=== PATIENT | female | born 1970 | race Caucasian/White ===

== ENCOUNTER 2019-09-05 11:20 | Inpatient (IN) | payer BC, SELFPAY ==
[2019-09-05] VITALS (14 sets, daily range): BP systolic 134–178; BP diastolic 68–97; PULSE 68–112; RESP 16–34; TEMP 36.8; O2SAT 96–98; BMI 22.0
--- NOTE | 2019-09-05 12:26 | CT_ITS ---
WS: [id number] CT abdomen wo/w con [id number] REASON FOR EXAM: hx pancreatitis IV CONTRAST ADMINISTERED: Omnipaque 300, 95 mL. TOTAL EXAM DLP: 775.[address] scans at [facility] use at least one of these dose optimization techniques: automat ed exposure control; mA and/or kV adjustment per patient size (includes targeted exams where dose is matched to clinical dication); or iterative reconstruction. The head of the pancreas shows low-grade hypointense signal. Consistent with low-grade pancreatitis. The pancreatic duct is mildly dilated. The body and tail are normal. There is no fluid seen surrounding Gerota's fascia. There is status post cholecystectomy. The liver was normal with no infiltrating changes. The spleen, stomach, are normal. The common bile duct slightly prominent measures 7.97 cm. Both kidneys are normal no masses no hydronephrosis no stones. The right colon was normal. Index shows no inflammatory changes. The uterus is normal the left ovary shows a cyst measures 2.77 cm. The left ovary measured 3.93 cm. T he right ovary shows a cyst measures 2.05 cm. Line the uterus is normal. The bladder was normal. There is no free fluid in the pelvis seen. The sigmoid colon and descending colon show no abnormalities. CT/CT abdomen wo/w con [id number] IMPRESSION: Early pancreatitis involving the head of the pancreas There is bilateral ovarian cysts largest on the left.
--- NOTE | 2019-09-05 12:37 | ED_ITS ---
HPI - Abdominal Pain General: Chief Complaint: Abdominal Pain Stated Complaint: ABD PAIN Time Seen by Provider: 09/05/19 12:20 Source: patient Mode of arrival: ambulatory History of Present Illness: HPI narrative: pain in upper abdomen radiating through to both sides MD elicited complaint: abdominal pain Pertinent past history: other (pancreatitis ) Onset (ago): hour(s) (3 hours) Pain scale (0-10): 5 Associated Symptoms: Reports nausea; Denies chills and fever(s) Related Data: Date of Last Menstrual Period: 08/13/19 Review of Systems General: Reports: 10 or more systems reviewed and unremarkable except in HPI and below Const: Reports: body aches; Denies: fever(s) or chills GI: Reports: abdominal pain and nausea PFSH ED PFSH: Social History Smoking and tobacco status: current every day smoker Female Reproductive History: Date of last menstrual period: 08/13/19 Physical Exam Const: COMMON NORMALS: no acute distress, patient oriented x3, no limitations and alert GENERAL APPEARANCE: cooperative and comfortable ORIENTATION/CONSCIOUSNESS: Yes awake, Yes oriented to person, Yes oriented to place and Yes oriented to time HENMT: COMMON NORMALS: normocephalic, atraumatic, external ears normal, EAC's normal, TM's normal bilaterally and Normal external nose present HEAD & SCALP: normal to inspection, normocephalic and atraumatic FACE & SINUS: normal facial exam, sinuses nontender and face symmetric NOSE: Normal external nose present, Normal nares present and No nasal discharge present EXTERNAL EAR: Yes external ears normal EXTERNAL AUDITORY CANAL: EAC's normal TYMPANIC MEMBRANE: TM's normal bilaterally MOUTH: Normal oral and palatal mucosa present, lip normal and tongue normal THROAT: posterior oropharynx normal, tonsils normal and uvula midline Eye: COMMON NORMALS: Equal, round and reactive pupils present, EOMs intact bilaterally and conjunctivae normal GENERAL EYE: appearance normal, both eyes and all related structures and normal light reflex EYELID: eyelids normal CONJUNCTIVA: Yes conjunctivae normal PUPIL: Yes Equal, round and reactive pupils present EOM: Yes EOM abnormal DIRECT OPHTHALMOSCOPY: Yes normal light reflex Neck/C-Spine: COMMON NORMALS: full ROM, no lymphadenopathy, supple, no meningeal signs, no JVD and Thyroid normal GENERAL: Yes normal visual inspection THYROID: Thyroid normal CERVICAL SPINE: Yes cervical ROM normal and Yes normal cervical lordosis Lymph: LYMPHATIC: no lymphadenopathy noted Chest: COMMONS NORMALS: normal inspection of the chest and normal palpation of entire chest wall Resp: COMMON NORMALS: normal respiratory effort, No retractions and clear to auscultation bilaterally AUSCULTATION: clear to auscultation bilaterally Cardio: COMMON NORMALS: no JVD, regular rate, regular rhythm, S1 normal heart sound present, S2 normal heart sound present, No gallops present (Cardio), No clicks present (Cardio), No murmurs present (Cardio), No rub (Cardio) and Peripheral pulses 2+ throughout RATE: regular rate RHYTHM: regular rhythm HEART SOUNDS: S1 normal heart sound present and S2 normal heart sound present PERIPHERAL PULSES: Peripheral pulses 2+ throughout GI: COMMON NORMALS: Normal to inspection, nondistended, normoactive bowel sounds present, Soft to palpation, No hepatosplenomegaly present and no masses AUSCULTATION: Yes normoactive bowel sounds PALPATION: Yes Soft to palpation, Yes Tenderness to palpation present (GI) (epigastric and radiating RUQ AND LUQ) Details: other and Yes No hepatosplenomegaly present : COMMON NORMALS: Yes no CVA tenderness and Yes normal external appearance BLADDER/KIDNEY EXAM: Yes no CVA tenderness Back/Pelvis: COMMON NORMALS: no CVA tenderness, thoracic and lumbar spine normal to inspection, no thoracic nor lumbar tenderness and thoraco-lumbar ROM normal Extremity: COMMON NORMALS: normal to inspection, full ROM, capillary refill normal, no joint enlargement, no clubbing, cyanosis or edema, no calf tenderness and no pedal edema GENERAL: Yes normal exam except as noted Neuro: COMMON NORMALS: patient oriented x3, moves all extremities, no focal motor deficits, no sensory deficits noted and gait normal SENSORIUM/ORIENTATION: Yes alert, Yes oriented to person, Yes oriented to place and Yes oriented to time MENINGEAL SIGNS: Yes no meningeal signs Psych: COMMON NORMALS: mental status grossly normal, Normal thought process present, cooperative, normal affect, speech normal and activity/motor behavior normal SPEECH: Yes normal speech THOUGHT PROCESS: Normal thought process present Skin: COMMON NORMALS: no rashes or lesions noted, no wounds and turgor normal GENERAL SKIN EXAM: no rashes or lesions noted and turgor normal Course ED course: Pt presents with NV and upper abdominal pain since this morning. States hx of pancreatitis. Toradol IM given at PCP prior to arrival. Labs and ct ordered. Reevaluation(s): Reevaluation #1: WBC elevated greater than 17. Pain increased but able to tolerated fluids. Will discuss with attending. Pt pain is tolerable with medications. CT indicates early pancreatitis and subsequent Bilateral ovarian cysts with no free fluid in pelvis. Time: 14:19 Reevaluation #2: Discussed pt case with Dr. Prado. Awaiting CMP. Rocephin 1gm for uti. Pt pain is well managed if is she not moving. Will be NPO. Awaiting lipase as well. Transferring care to Dr. Prado at this time. Time: 14:39 Vital Signs: Vital signs: Vital Signs Temperature 98.2 F 09/05/19 11:34 Pulse Rate 77 09/05/19 11:34 Respiratory Rate 16 09/05/19 13:18 Blood Pressure 165/71 09/05/19 11:34 Pulse Oximetry 98 09/05/19 13:18 MDM - Abdominal Pain Lab Data: Labs: Lab Results 09/05/19 09/05/19 Range/Units 12:50 13:24 WBC 17.4 H (4.0-10.0) 10^3/ uL RBC 4.49 (4.1-5.3) 10^6/u L Hgb 13.8 (11.5-15.3) g/dL Hct 38.9 (37.0-47.0) % MCV 86.6 (81-99) fL MCH 30.7 (28.0-34.0) pg MCHC 35.5 (30.0-36.0) g/dL RDW 13.1 (12.1-15.1) % Plt Count 271 (130-400) 10^3/c mm MPV 11.2 H (7.4-10.4) fL Neut % (Auto) 81.9 % Lymph % (Auto) 13.6 % [place] % (Auto) 3.0 % Eos % (Auto) 0.5 % Baso % (Auto) 0.3 % Neut # (Auto) 14.2 H (1.8-7.7) 10^3/u L Lymph # (Auto) 2.4 (0.8-4.8) 10^3/u L [place] # (Auto) 0.5 (0.2-0.9) 10^3/u L Eos # (Auto) 0.1 (0.0-0.8) 10^3/u L Baso # (Auto) 0.1 (0.0-0.1) 10^3/u L Nucleated RBC % (a uto) 0 % Nucleated RBCs # 0.0 /100WBC Urine Color Yellow (Yellow) Urine Appearance Sl cloudy A (CLEAR) Urine pH 5 (5-7) Ur Specific Gravit y 1.030 (1.005-1.030) Urine Protein 1+ H (Negative) Urine Glucose (UA) Norm (Normal) Urine Ketones 2+ H (Negative) Urine Blood 2+ H (Negative) Urine Nitrate Positive H (Negative) Urine Bilirubin Neg (NEGATIVE) Urine Urobilinogen Neg (Negative) mg/dL Ur Leukocyte [place] ase Negative (Negative) Urine RBC 0-4 H (0-2) /hpf Urine WBC 0-4 H (0-5) /hpf Ur Squamous Epith Cells 5-10 H (0-5) Amorphous Sediment 2+ Urine Bacteria 2+ H (NONE) Urine Mucus 1+ Imaging Data ^: Other CT: Radiologist's impression: [address] [place] [address] CT Scan Report Signed Patient: Melony Hermosillo Unit #: [id number] : 1970 Age/Sex: 49 / F ADM Date: 09/05/19 Loc: ER Room/Bed: Attending Dr: Ordering Provider/Ordering MD: Gely Velasquez NP Date of Service: 09/05/19 Procedure(s): CT abdomen wo/w con [id number] Accession Number(s): [id number] Report Number: [id number] WS: [id number] CT abdomen wo/w con [id number] REASON FOR EXAM: hx pancreatitis IV CONTRAST ADMINISTERED: Omnipaque 300, 95 mL. TOTAL EXAM DLP: 775.[address] scans at [facility] use at least one of these dose optimization techniques: automated exposure control; mA and/or kV adjustment per patient size (includes targeted exams where dose is matched to clinical dication); or iterative reconstruction. The head of the pancreas shows low-grade hypointense signal. Consistent with low-grade pancreatitis. The pancreatic duct is mildly dilated. The body and tail are normal. There is no fluid seen surrounding Gerota's fascia. There is status post cholecystectomy. The liver was normal with no infiltrating changes. The spleen, stomach, are normal. The common bile duct slightly prominent measures 7.97 cm. Both kidneys are normal no masses no hydronephrosis no stones. The right colon was normal. Index shows no inflammatory changes. The uterus is normal the left ovary shows a cyst measures 2.77 cm. The left ovary measured 3.93 cm. The right ovary shows a cyst measures 2.05 cm. Line the uterus is normal. The bladder was normal. There is no free fluid in the pelvis seen. The sigmoid colon and descending colon show no abnormalities. CT/CT abdomen wo/w con [id number] IMPRESSION: Early pancreatitis involving the head of the pancreas There is bilateral ovarian cysts largest on the left. Dictated By: Isacc Patel DO Signed By: Isacc Patel DO Signed Date/Time: 09/05/19 1407 DD/ 1400 Discharge Plan Discharge Prescriptions: No Action metformin 1,000 mg tablet 1,000 mg PO BID RF: 0 Coding Level of Care Code ED Photographic Engineer for Chg Fwd Exam Comprehensive
[2019-09-05] MEDS: ondansetron 2 mg/ML SDV 2 mL 4 MG IVP (13:03)
[2019-09-05] MEDS: sodium chloride 0.9% 500 ML IV (13:05)
[2019-09-05 13:16] LABS: Basophils # 0.1 10^3/uL (0.0-0.1); Basophils % 0.3 %; Eosinophils # 0.1 10^3/uL (0.0-0.8); Eosinophils % 0.5 %; Hematocrit 38.9 % (37.0-47.0); Hemoglobin 13.8 g/dL (11.5-15.3); Lymphocytes # 2.4 10^3/uL (0.8-4.8); Lymphocytes % 13.6 %; Mean Corpuscular HGB Conc 35.5 g/dL (30.0-36.0); Mean Corpuscular Hemoglobin 30.7 pg (28.0-34.0); Mean Corpuscular Volume 86.6 fL (81-99); Mean Platelet Volume 11.2 fL (7.4-10.4); Monocytes # 0.5 10^3/uL (0.2-0.9); Neutrophils # 14.2 10^3/uL (1.8-7.7); Neutrophils % 81.9 %; Nucleated Red Blood Cells % 0 %; Platelet Count 271 10^3/cmm (130-400); Red Blood Count 4.49 10^6/uL (4.1-5.3); Red Cell Distribution Width 13.1 % (12.1-15.1); White Blood Count 17.4 10^3/uL (4.0-10.0)
[2019-09-05] MEDS: morphine 4 mg/mL SDV 1 mL IVP ×3 (13:18→19:13)
[2019-09-05 13:39] LABS: Glucose Urine UA Norm (Normal); Ketones Urine 2+ (Negative); Protein Urine 1+ (Negative); Urine Color Yellow (Yellow); pH Urine 5 (5-7)
[2019-09-05 13:40] LABS: Add Urine Microscopic? YES; Bilirubin Urine Neg (NEGATIVE); Blood Urine 2+ (Negative); Leukocyte Esterase Urine Negative (Negative); Nitrate Urine Positive (Negative); Urobilinogen Urine Neg (Negative)
[2019-09-05 13:53] LABS: Add Urine Culture? Yes; Amorphous Sediment Urine 2+; Bacteria Urine 2+; Mucus Urine 1+; RBC Urine 0-4 /hpf (0-2); WBC Urine 0-4 /hpf (0-5)
[2019-09-05] MEDS: iohexol 300 mg/mL 100 mL Btl IV (13:57)
[2019-09-05] MEDS: cefTRIAXone 1,000 MG in sodium chloride 0.9% (plus) 50 ML 100 MG IV (15:10)
[2019-09-05 16:13] LABS: Alanine Aminotransferase < 5 U/L (0-33); Albumin Level 4.3 g/dL (3.5-5.2); Alkaline Phosphatase 89 IU/L (35-105); Anion Gap 22.5 (5-19); Aspartate Amino Transferase 58 U/L (0-32); Blood Urea Nitrogen 9 mg/dL (6-20); Calcium 9.7 mg/dL (8.5-10.5); Carbon Dioxide 19 mmol/L (22-29); Chloride 92 mmol/L (98-107); Globulin 3.2 g/dL (1.3-4.6); Glomerular Filtration Rate 132.2 mL/min (90-130); Glucose 196 mg/dL (65-115); Osmolality Calculated 269 mOsm/kg (285-295); Sodium 129 mmol/L (136-145); Total Bilirubin 0.2 mg/dL (0.15-1.2); Total Protein 7.5 g/dL (6.6-8.7)
[2019-09-05 16:14] LABS: Potassium 4.5 mmol/L (3.5-5.1)
[2019-09-05 16:15] LABS: Lipase 674 U/L (13-60)
[2019-09-05] MEDS: metoclopramide 5 mg/mL SDV 2 mL 10 MG IVP (17:34)
--- NOTE | 2019-09-05 17:57 | P.HP_ITS ---
Providers/Chief Complaint Chief Complaint: ABD PAIN History of Present Illness Melony Hermosillo is a 49 year old female Review of Systems Const: Denies: fever(s), chills, body aches, change in appetite, malaise, night sweats, diaphoresis, change in sleep pattern, daytime sleepiness or s noring Eyes: Denies: change in vision, blurry vision, photophobia, eye discomfort or eye discharge ENMT: Denies: throat pain, enlarged tonsils, hoarseness, mouth pain, oral sores, dry mouth, tinnitus, nasal congestion or post nasal drip Card: Denies: chest pain, palpitations, irregular heart rhythm, edema, swelling of feet/ankles, lightheadedness, syncope, pre-syncope, dyspnea on exertion, orthopnea, leg pain with exertion or acrocyanosis Resp: Denies: dyspnea, productive cough, non-productive cough, wheezing, stridor, pain on inspiration, change in phlegm color, hemoptysis or chest congestion GI: Denies: abdominal pain, nausea, vomiting, hematemesis, coffee ground emesis, dysphagia, heartburn, diarrhea, constipation, bloating, GI cramping, change in bowel habits, pain on defecation, hematochezia or melena : Denies: flank pain, dysuria, urinary frequency, urinary urgency, urinary hesitancy, nocturia or hematuria Musc: Denies: neck pain, back pain, extremity pain, joint pain, joint swelling, joint redness, joint stiffness or limited range of motion Neuro: Denies: headache(s), numbness in extremities, weakness in extremities, sensory changes, lack of coordination, difficulty walking, frequent falls, dizziness, vertigo, confusion, Slurred speech present, difficulty communicating thoughts or seizure-like activity Psych: Denies: anxiety, depression, mood swings, panic attacks, hopelessness or irritability Endo: Denies: polyuria, polydipsia, tired all the time, cold intolerance, excessive sweating, flushing or heat intolerance Jeramy/Lymph: Denies: easy bruising or easy bleeding All/Imm: Denies: tongue swelling, facial swelling or acute wheezing Medications/Allergies Home Medications Medication Instructions Recorded Confirmed Last Taken Type metformin 1,000 mg PO BID 09/05/19 09/05/19 09/04/19 History Allergies Allergy/AdvReac Type Severity Reaction Status Date / Time No Known Allergies Allergy Verified 09/05/19 11:38 PFSH Acute PFSH: Medical History (Updated 09/05/19 @ 18:03 by Tuan Chinchilla MD) History of diabetes mellitus, type II Pancreatitis Surgical History (Updated 09/05/19 @ 17:59 by Tuan Chinchilla MD) History of History of cholecystectomy History of rhinoplasty Social History Smoking and tobacco status: current every day smoker Female Reproductive History: Date of last menstrual period: 08/13/19 Vitals/I&O/Wt Last Vital Signs Temp 98.2 F 09/05/19 11:34 Pulse 77 09/05/19 11:34 Resp 18 09/05/19 15:15 BP 165/71 09/05/19 11:34 Pulse Ox 98 09/05/19 15:15 Weight last 48 hrs Weight 51.256 kg Physical Exam Narrative: EXAM NARRATIVE: General: No acute distress, AO x3 HEENT: PERRLA, pupils bilaterally equal and reactive Chest: Normal vesicular breath sounds, no added sounds, equal good air entry bilaterally CVS: S1-S2 regular, no murmurs, no tachycardia, no gallops, no rubs Abdomen: Soft, nontender, no organomegaly, bowel sounds present Neuro: No focal deficits, no facial deformity, AO x3, power 5/5 in all limbs Data : 09/05/19 12:50 09/05/19 12:50 A&P Assessment and plan (1) Pancreatitis: Status: Acute (2) Hyponatremia: Status: Acute (3) High anion gap metabolic acidosis: Status: Acute Coding Level of Care Code Acute Seo Manager for [facility] Fwd Diagnoses Pancreatitis K85.90 Hyponatremia E87.1 High anion gap metabolic acidosis E87.2
[2019-09-05 18:14] LABS: Amphetamines Screen Urine Negative (Negative); Barbiturates Screen Urine Negative (Negative); Benzodiazepines Screen Urine Negative (Negative); Cocaine Screen Urine Negative (Negative); Opiate Screen Urine Negative (Negative); PCP Screen Urine Negative (Negative); THC Screen Urine Negative (Negative)
[2019-09-05 18:28] LABS: Triglycerides 4283 mg/dL (0-150)
[2019-09-05 18:31] LABS: Alcohol Level < 10 mg/dL (0-10)
[2019-09-05 18:38] LABS: Lactic Sepsis W/Reflex 1.9 mmol/L (0.5-2.2)
[2019-09-05 18:50] LABS: Procalcitonin 0.06 ng/mL (0-0.5)
[2019-09-05 19:03] LABS: Urine Random Chloride 191 mmol/L; Urine Random Sodium 104 mmol/L
[2019-09-05 19:05] LABS: Iron 27 ug/dL (37-145); Percent Saturation 7.9 % (20-50); Total Iron Binding Capacity 341 mcg/dl; Unsaturated Iron Binding 314 ug/dL (112-347)
--- NOTE | 2019-09-05 19:15 | P.HP_ITS ---
Providers/Chief Complaint Chief Complaint: ABD PAIN History of Present Illness Melony Hermosillo is a 49 year old female who carries diagnosis of type 2 diabetes being treated with metformin only, has had 3 episodes of pancreatitis in the past due to hypertriglyceridemia came in with chief complaint of recurrent nausea and vomiting. Patient is stating that this morning she started feeling n auseous when she woke up, she started experiencing epigastric pain 8/10, it was radiating towards her back, she has had more than 10 episodes of emesis and dry heaves. She is denying any fever, hematemesis, dysuria, chest pain or shortness of breath. She had similar episode in 2016 that is how she could catch her symptoms early on. Diagnostics in the ER revealed leukocytosis, normal hemodynamics, hypertension, CT abdomen revealed pancreatitis, triglyceride levels around 5000, drug screen negative, beta-hCG unremarkable, high anion gap metabolic acidosis due to dehydration, urinary ketones positive At the time of my interview her abdominal pain was 5/10 Review of Systems Const: Reports: body aches and fatigue; Denies: fever(s), chills or change in appetite Eyes: Denies: change in vision ENMT: Denies: throat pain Card: Denies: chest pain or palpitations Resp: Denies: dyspnea GI: Reports: abdominal pain, nausea and vomiting; Denies: diarrhea or constipation : Denies: flank pain or urinary frequency Musc: Reports: back pain Skin/Breast: Denies: rash or pruritus Neuro: Denies: headache(s) Psych: Denies: anxiety Endo: Denies: polyuria Jeramy/Lymph: Denies: easy bruising All/Imm: Denies: urticaria Medications/Allergies Home Medications Medication Instructions Recorded Confirmed Last Taken Type metformin 1,000 mg PO BID 09/05/19 09/05/19 09/04/19 History Allergies Allergy/AdvReac Type Severity Reaction Status Date / Time No Known Allergies Allergy Verified 09/05/19 11:38 PFSH Acute PFSH: Medical History (Updated 09/05/19 @ 19:50 by Navid Valladares MD) History of diabetes mellitus, type II Pancreatitis Surgical History (Updated 09/05/19 @ 17:59 by Tuan Chinchilla MD) History of History of cholecystectomy History of rhinoplasty Family History (Updated 09/05/19 @ 19:45 by Navid Valladares MD) Denies family history of Hyperlipidemia Lung disease Hypertension Social History (Updated 09/05/19 @ 19:45 by Navid Valladares MD) Smoking and tobacco status: heavy tobacco smoker cigarettes [ Other cigarette details: 1 pack/day for last 30 years ] Alcohol intake: never Substance/Drug Use: never Household members: spouse Housing: House Marital status: Female Reproductive History: Date of last menstrual period: 08/13/19 Vitals/I&O/Wt Last Vital Signs Temp 98.2 F 09/05/19 11:34 Pulse 77 09/05/19 11:34 Resp 18 09/05/19 15:15 BP 165/71 09/05/19 11:34 Pulse Ox 98 09/05/19 15:15 Weight last 48 hrs Weight 51.256 kg Physical Exam Narrative: EXAM NARRATIVE: Head to toe examination Patient sitting in her bed feeling nauseous EOMI, PERRLA Clinically looks dehydrated S1, S2 no signs of heart failure tachycardia Epigastric tenderness on mild palpation, bowel sound present, no retroperitoneal hemorrhage signs Lungs are clear to auscultation without adventitious sounds Appropriate mood and affect Skin does not show any sign of ischemia gangrene or ulcer Neurologically nonfocal exam GCS 15 awake alert oriented x3 Data : 09/05/19 12:50 09/05/19 12:50 Micro: Microbiology 09/05/19 18:11 Blood Culture - Preliminary Blood SPECIMEN COLLECTED 09/05/19 18:12 Blood Culture - Preliminary Blood SPECIMEN COLLECTED A&P Assessment and plan (1) Dehydration: Status: Acute (2) Hypertriglyceridemia: Status: Acute (3) High anion gap metabolic acidosis: Status: Acute (4) Hyponatremia: Status: Acute (5) Pancreatitis: Status: Acute (6) History of diabetes mellitus, type II: Status: Acute (7) Smoker: Status: Acute Additional A&P Information Hypertriglyceridemia induced pancreatitis Insulin drip, D5 half-normal 20 KCl will be running along insulin Blood sugar check every hour target 150 to 200 mg/dL Triglyceride level check every 12 hours Probably triglyceride level less than 500 Check A1c level Patient was counseled on smoking cessation, complications such as recurrent pancreatitis or pancreatic cancer explained to the patient, she is willing to quit smoking and is thinking of detoxifying High anion gap metabolic acidosis due to dehydration No active respiratory distress clinically, no need of blood gas at this point Urinary ketones positive Lactic acid normal Alcohol level undetectable Anticipating provement with fluid resuscitation Hyponatremia due to dehydration Currently requiring D5 half-normal saline with potassium supplementation No neurological signs No previous sodium level to compare Type 2 diabetes SHe only takes metformin, We will follow-up with lipid profile and A1c level Bilateral ovarian cyst Beta-hCG unremarkable Denying weight loss, night sweats or vaginal bleeding Full code N.p.o. DVT prophylaxis Attestations Medical Necessity Statement*: Anticipating stay in the hospital cross more than 2 midnights currently need ICU for management of hypertriglyceridemia induced pancreatitis Time Spent in Patient Care: 50 Coding Level of Care Code Acute Senior Contract Specialist for Chg Fwd Diagnoses Dehydration E86.0 Hypertriglyceridemia E78.1 High anion gap metabolic acidosis E87.2 Hyponatremia E87.1 Pancreatitis K85.90 History of diabetes mellitus, type II Z86.39 Smoker F17.200
[2019-09-05] MEDS: insulin regular-human 250 UNIT in sodium chloride 0.9% 250 ML IV (19:27)
[2019-09-05 20:22] LABS: Estmated Average Glucose 212
[2019-09-05] MEDS: D5-NS 0.45% + KCL 20 mEq 20 MEQ/1,000 ML BAG 30 MEQ IV (20:46)
[2019-09-05] MEDS: enoxaparin 40 mg/0.4 mL Syringe SUBCUT (20:47)
[2019-09-05 21:03] LABS: Lactate Dehydrogenase 249 U/L (135-214)
[2019-09-05 21:29] LABS: Glucose Point of Care 149 mg/dL (70-110)
[2019-09-05 21:45] LABS: Potassium, Radom Urine 167 mmol/L
[2019-09-05 22:16] LABS: Glucose Point of Care 163 mg/dL (70-110)
[2019-09-05 23:34] LABS: Glucose Point of Care 181 mg/dL (70-110)
[2019-09-06] VITALS (26 sets, daily range): BP systolic 108–160; BP diastolic 56–86; PULSE 110–140; RESP 16–35; TEMP 36.9–37.9; O2SAT 92–97
[2019-09-06 01:18] LABS: Glucose Point of Care 164 mg/dL (70-110)
[2019-09-06 03:24] LABS: Glucose Point of Care 164 mg/dL (70-110)
[2019-09-06 05:04] LABS: Glucose Point of Care 166 mg/dL (70-110)
[2019-09-06 05:31] LABS: Basophils % 0.2 %; Eosinophils % 0.1 %; Hematocrit 40.9 % (37.0-47.0); Hemoglobin 13.9 g/dL (11.5-15.3); Lymphocytes % 9.1 %; Mean Corpuscular Volume 85.2 fL (81-99); Mean Platelet Volume 10.9 fL (7.4-10.4); Monocytes # 0.9 10^3/uL (0.2-0.9); Monocytes % 4.2 %; Neutrophils # 18.7 10^3/uL (1.8-7.7); Neutrophils % 85.8 %; Nucleated Red Blood Cells % 0 %; Platelet Count 300 10^3/cmm (130-400); Red Cell Distribution Width 13.3 % (12.1-15.1); White Blood Count 21.8 10^3/uL (4.0-10.0)
[2019-09-06 05:49] LABS: Chol HDL Ratio 15.29 mg/dL (0.0-4.40); Cholesterol 367 mg/dL (0-200); HDL Cholesterol 24 mg/dL (60-100)
[2019-09-06 05:57] LABS: Albumin Level 3.9 g/dL (3.5-5.2); Alkaline Phosphatase 74 IU/L (35-105); Anion Gap 20.7 (5-19); Blood Urea Nitrogen 8 mg/dL (6-20); Calcium 8.7 mg/dL (8.5-10.5); Carbon Dioxide 20 mmol/L (22-29); Chloride 97 mmol/L (98-107); Globulin 3.1 g/dL (1.3-4.6); Glomerular Filtration Rate 238.5 mL/min (90-130); Glucose 157 mg/dL (65-115); Osmolality Calculated 277 mOsm/kg (285-295); Potassium 3.7 mmol/L (3.5-5.1); Sodium 134 mmol/L (136-145); Total Bilirubin 0.3 mg/dL (0.15-1.2)
[2019-09-06 06:09] LABS: Glucose Point of Care 152 mg/dL (70-110)
[2019-09-06 06:10] LABS: Alanine Aminotransferase < 5 U/L (0-33); Aspartate Amino Transferase 5 U/L (0-32)
[2019-09-06 06:12] LABS: Triglycerides 1720 mg/dL (0-150); VLDL Cholestrol Calculation 344 mg/dL (0-30)
[2019-09-06 06:24] LABS: Estmated Average Glucose 209; Hemoglobin A1C 8.9 % (4.0-6.0)
[2019-09-06 06:31] LABS: LDL Cholesterol Direct 60 mg/dL (0-100)
--- NOTE | 2019-09-06 07:01 | PM.PN ---
Subjective Subjective: Interval history: Admitted overnight. H&P and labs noted. T-max last 24 hours afebrile. On examination patient lying comfortably in bed. Stating she is feeling a lot better than before. Still has had 2 episodes of vomiting since last night. No hematemesis or melena. Patient is able to walk around the room on her own. Denies of having any headache, dizziness, difficulty breathing. Vitals/I&O/Wt Last Vital Signs Temp 98.4 F 09/06/19 06:00 Pulse 118 H 09/06/19 06:00 Resp 29 H 09/06/19 06:00 BP 148/80 09/06/19 06:00 Pulse Ox 96 09/06/19 06:00 09/05/19 09/06/19 09/06/19 22:59 06:59 14:59 Intake Total 10.45 / 10.45 26.65 / 37.10 Output Total 100 / 100 Balance 10.45 / 10.45 -73.35 / -62.90 Weight last 48 hrs Weight 51.256 kg Physical Exam Narrative: EXAM NARRATIVE: General: No acute distress, AO x3, thin appearing HEENT: PERRLA, pupils bilaterally equal and reactive Chest: Normal vesicular breath sounds, no added sounds, equal good air entry bilaterally CVS: S1-S2 regular, no murmurs, no tachycardia, no gallops, no rubs Abdomen: Soft, tenderness in epigastric area, no rebound no guarding, no organomegaly, bowel sounds present but sluggish Neuro: No focal deficits, no facial deformity, AO x3, power 5/5 in all limbs Data : 09/06/19 05:00 09/06/19 05:00 Micro: Microbiology 09/05/19 18:11 Blood Culture - Preliminary Blood SPECIMEN COLLECTED 09/05/19 18:12 Blood Culture - Preliminary Blood SPECIMEN COLLECTED A&P Assessment and plan (1) Hypertriglyceridemia: Status: Acute (2) Pancreatitis: Status: Acute (3) Dehydration: Status: Acute (4) High anion gap metabolic acidosis: Status: Acute (5) Hyponatremia: Status: Acute (6) History of diabetes mellitus, type II: Status: Acute (7) Smoker: Status: Acute (8) UTI (urinary tract infection): Status: Acute Additional A&P Information Hypertriglyceridemia induced pancreatitis: Patient's white count is elevated, has remained afebrile, no lactic acidosis, normal BUN, normal calcium levels. Alcohol levels undetectable, urine drug screen normal, CT abdomen negative for any gallbladder pathology. Continue insulin drip. Patient would need 0.1 to 0.3 units/kg body weight per hour. Start patient on D5 normal saline at 100 cc/h. Check blood sugar hourly. Check triglyceride at 6 PM. Target triglyceride level less than 500. Keep n.p.o. As patient's white count is trending up along with persistent tachycardia I am highly concerned about source response given severe inflammation from pancreatitis. Along with the fact that patient has dysuria and urine mildly concerning for UTI so we will start her on Zosyn renally dosed which will cover both for possible UTI and intra-abdominal pathology. Start patient on statins. High anion gap metabolic acidosis due to dehydration: Continue with IV fluids. We will continue to monitor BMP daily. Patient does not have any respiratory distress at present. Hyponatremia due to dehydration: Resolved Type 2 diabetes: Takes metformin at home. HbA1c 9. Check blood sugar hourly for now. N.p.o. for now. Patient would most likely need more aggressive treatment as an outpatient along with statins. Bilateral ovarian cyst Beta-hCG unremarkable Denying weight loss, night sweats or vaginal bleeding Full code N.p.o. Lovenox for DVT prophylaxis. Protonix for PUD prophylaxis Zofran as needed Attestations Medical Necessity Statement*: Hypertriglyceridemia induced pancreatitis Critical Care Time: Insulin drip for triglyceride management by managing blood sugars Critical Care Time (min): 80 Coding Level of Care Code Acute Venture Capital Analyst for [facility] Fwd Diagnoses Hypertriglyceridemia E78.1 Pancreatitis K85.90 Dehydration E86.0 High anion gap metabolic acidosis E87.2 Hyponatremia E87.1 History of diabetes mellitus, type II Z86.39 Smoker F17.200 UTI (urinary tract infection) N39.0
[2019-09-06 07:30] LABS: Free T4 Free Thyroxine 1.08 ng/dL (0.82-1.77); T3 Free 3.2 PG/ML (2.0-4.4)
[2019-09-06] MEDS: piperacillin-tazobactam 3.375 GM in sodium chloride 0.9% (plus) 50 ML IV ×2 (09:41→16:50)
[2019-09-06 10:36] LABS: Glucose Point of Care 174 mg/dL (70-110)
[2019-09-06 10:36] LABS: Glucose Point of Care 108 mg/dL (70-110)
[2019-09-06 10:36] LABS: Glucose Point of Care 168 mg/dL (70-110)
[2019-09-06 10:36] LABS: Glucose Point of Care 153 mg/dL (70-110)
[2019-09-06 10:36] LABS: Glucose Point of Care 156 mg/dL (70-110)
[2019-09-06] MEDS: dextrose 5%-sod chloride 0.9% 1,000 ML 50 ML IV ×2 (10:58→20:23)
[2019-09-06 13:05] LABS: Glucose Point of Care 140 mg/dL (70-110)
[2019-09-06 13:05] LABS: Glucose Point of Care 148 mg/dL (70-110)
[2019-09-06] MEDS: morphine 4 mg/mL SDV 1 mL IVP (13:33)
--- NOTE | 2019-09-06 13:40 | PC.NURSE ---
C/O ABD. PAIN. HEART RATE UP TODAY TEMP UP.
[2019-09-06] MEDS: pantoprazole 40 mg SDV IVP (14:47)
[2019-09-06 14:51] LABS: Glucose Point of Care 136 mg/dL (70-110)
[2019-09-06 19:10] LABS: Glucose Point of Care 127 mg/dL (70-110)
[2019-09-06 19:13] LABS: Triglycerides 761 mg/dL (0-150)
[2019-09-06 19:27] LABS: LDL Cholesterol Direct 60 mg/dL (0-100)
[2019-09-06] MEDS: atorvastatin 40 mg Tablet PO (20:23)
[2019-09-06] MEDS: enoxaparin 40 mg/0.4 mL Syringe SUBCUT (20:23)
[2019-09-06 20:28] LABS: Glucose Point of Care 123 mg/dL (70-110)
[2019-09-06 23:12] LABS: Anion Gap 18.3 (5-19); Blood Urea Nitrogen 8 mg/dL (6-20); Calcium 8.2 mg/dL (8.5-10.5); Carbon Dioxide 23 mmol/L (22-29); Chloride 99 mmol/L (98-107); Glomerular Filtration Rate 76.9 mL/min (90-130); Glucose 73 mg/dL (65-115); Osmolality Calculated 278 mOsm/kg (285-295); Potassium 3.3 mmol/L (3.5-5.1); Sodium 137 mmol/L (136-145)
[2019-09-06 23:12] LABS: Glucose Point of Care 192 mg/dL (70-110)
[2019-09-07] VITALS (24 sets, daily range): BP systolic 112–155; BP diastolic 62–75; PULSE 109–145; RESP 16–44; TEMP 37.9–38.3; O2SAT 90–98
[2019-09-07 01:26] LABS: Glucose Point of Care 178 mg/dL (70-110)
[2019-09-07] MEDS: piperacillin-tazobactam 3.375 GM in sodium chloride 0.9% (plus) 50 ML IV ×3 (01:48→18:33)
[2019-09-07 05:09] LABS: Basophils # 0.1 10^3/uL (0.0-0.1); Basophils % 0.4 %; Eosinophils # 0.1 10^3/uL (0.0-0.8); Eosinophils % 0.6 %; Hematocrit 34.2 % (37.0-47.0); Hemoglobin 11.2 g/dL (11.5-15.3); Lymphocytes # 1.7 10^3/uL (0.8-4.8); Lymphocytes % 9.6 %; Mean Corpuscular HGB Conc 32.7 g/dL (30.0-36.0); Mean Corpuscular Hemoglobin 28.9 pg (28.0-34.0); Mean Corpuscular Volume 88.4 fL (81-99); Mean Platelet Volume 10.8 fL (7.4-10.4); Monocytes # 0.8 10^3/uL (0.2-0.9); Monocytes % 4.8 %; Neutrophils # 14.7 10^3/uL (1.8-7.7); Neutrophils % 83.1 %; Nucleated Red Blood Cells % 0 %; Platelet Count 223 10^3/cmm (130-400); Red Blood Count 3.87 10^6/uL (4.1-5.3); Red Cell Distribution Width 13.9 % (12.1-15.1); White Blood Count 17.7 10^3/uL (4.0-10.0)
[2019-09-07 05:36] LABS: Triglycerides 622 mg/dL (0-150)
[2019-09-07 05:38] LABS: Alanine Aminotransferase 12 U/L (0-33); Albumin Level 3.1 g/dL (3.5-5.2); Alkaline Phosphatase 66 IU/L (35-105); Anion Gap 14.9 (5-19); Aspartate Amino Transferase 16 U/L (0-32); Blood Urea Nitrogen 5 mg/dL (6-20); Carbon Dioxide 22 mmol/L (22-29); Chloride 102 mmol/L (98-107); Globulin 3.1 g/dL (1.3-4.6); Glomerular Filtration Rate 76.9 mL/min (90-130); Glucose 173 mg/dL (65-115); Osmolality Calculated 282 mOsm/kg (285-295); Sodium 136 mmol/L (136-145); Total Bilirubin 0.5 mg/dL (0.15-1.2); Total Protein 6.2 g/dL (6.6-8.7)
[2019-09-07 05:42] LABS: Potassium 2.9 mmol/L (3.5-5.1)
[2019-09-07 05:43] LABS: Glucose Point of Care 199 mg/dL (70-110)
[2019-09-07 05:58] LABS: LDL Cholesterol Direct 69 mg/dL (0-100)
--- NOTE | 2019-09-07 07:23 | CT_ITS ---
WS: [id number] CT abdomen pelvis w con* [id number] REASON FOR EXAM: r/o necrotizing pancreatitis IV CONTRAST ADMINISTERED: Omnipaque 300, 95 mL . TOTAL EXAM DLP: 402.[address] scans at [facility] use at least one of these dose optimization techniques: automat ed exposure control; mA and/or kV adjustment per patient size (includes targeted exams where dose is matched to clinical indication); or iterative reconstruction. FINDINGS: The left breast shows a mass measures 4.3 x 2.6 cm. The right lower lung shows a low-grade infiltrate. Normal appearance the liver with no masses or filling defects. Stable postcholecystectomy. The spleen was normal. The head and body of the pancreas shows marked edema this changes and there is a questionable pseudoc yst in the head of the pancreas. There is considerable edema surrounding the pancreas Considerable fluid is seen surrounding Gerota's fascia. The kidneys himself are normal in appearance. The large bowel was normal there is scattered fluid throughout the abdomen seen. There is small bowel distention consistent with a ileus. There is no thickening of the wall of the sm all bowel. The descending colon shows diverticulosis. The bladder was normal. There is some fluid seen in the pelvis. The rectum was normal.. CT/CT abdomen pelvis w con* [id number] IMPRESSION: Acute necrotizing pancreatitis A small pseudocyst in the head of the pancreas Fluid surrounding the kidneys and scattered throughout the abdomen Ileus changes of the small bowel.
[2019-09-07] MEDS: potassium chloride premix 40 MEQ/100 ML PREMIX 25 MEQ IV ×2 (07:26→12:03)
[2019-09-07] MEDS: iohexol 300 mg/mL 100 mL Btl IV (08:38)
[2019-09-07 09:15] LABS: Glucose Point of Care 131 mg/dL (70-110)
[2019-09-07] MEDS: pantoprazole 40 mg SDV IVP (09:53)
[2019-09-07] MEDS: morphine 4 mg/mL SDV 1 mL 2 MG IVP ×3 (10:08→22:12)
[2019-09-07] MEDS: ondansetron 2 mg/ML SDV 2 mL 4 MG IVP (10:08)
[2019-09-07] MEDS: dextrose 5%-sod chloride 0.9% 1,000 ML 50 ML IV ×2 (12:03→19:28)
[2019-09-07 13:20] LABS: Glucose Point of Care 133 mg/dL (70-110)
[2019-09-07 14:32] LABS: Triglycerides 552 mg/dL (0-150)
[2019-09-07 15:30] LABS: LDL Cholesterol Direct 64 mg/dL (0-100)
--- NOTE | 2019-09-07 15:52 | PM.PN ---
Subjective Subjective: Interval history: No acute events overnight. Patient states her abdominal pain is a lot better. Denies of having any vomiting but continues to be really nauseous. Wondering if she can eat. T-max in last 24-hour 100.3 last night. Patient continues to remain persistently tachycardic. Denies of having any shortness of breath, dizziness, palpitations. Vitals/I&O/Wt Last Vital Signs Temp 100.9 F H 09/07/19 15:00 Pulse 138 H 09/07/19 15:00 Resp 26 H 09/07/19 15:27 BP 143/66 09/07/19 15:00 Pulse Ox 95 09/07/19 15:27 09/07/19 09/07/19 09/07/19 06:59 14:59 22:59 Intake Total 50 / 744.916 883.333 / 883.333 Output Total 1000 / 1201 Balance -950 / -456.084 883.333 / 883.333 Physical Exam Narrative: EXAM NARRATIVE: General: No acute distress, AO x3, thin appearing HEENT: PERRLA, pupils bilaterally equal and reactive Chest: Normal vesicular breath sounds, no added sounds, equal good air entry bilaterally CVS: S1-S2 regular, no murmurs, no tachycardia, no gallops, no rubs Abdomen: Soft, tenderness in epigastric area, no rebound no guarding, no organomegaly, bowel sounds present but sluggish Neuro: No focal deficits, no facial deformity, AO x3, power 5/5 in all limbs Data : 09/07/19 04:40 09/07/19 04:40 Micro: Microbiology 09/05/19 13:24 Urine Culture - Final Urine,Clean Catch Escherichia coli 09/05/19 18:11 Blood Culture - Preliminary Blood NEGATIVE TO DATE 09/05/19 18:12 Blood Culture - Preliminary Blood NEGATIVE TO DATE A&P Assessment and plan (1) Hypertriglyceridemia: Status: Acute (2) Dehydration: Status: Acute (3) High anion gap metabolic acidosis: Status: Acute (4) Hyponatremia: Status: Acute (5) History of diabetes mellitus, type II: Status: Acute (6) Smoker: Status: Acute (7) UTI (urinary tract infection): Status: Acute (8) Acute necrotizing pancreatitis: Status: Acute Additional A&P Information Hypertriglyceridemia induced pancreatitis: Patient's white count is elevated, has remained afebrile, no lactic acidosis, normal BUN, normal calcium levels. Alcohol levels undetectable, urine drug screen normal, CT abdomen negative for any gallbladder pathology. Because of persistent fever, tachycardia will get CT abdomen pelvis with contrast to rule out necrotizing pancreatitis. Triglyceride levels coming down. 622 today morning. Continue insulin drip at a steady rate. Patient usually requires 0.1 to 0.3 units/kg body weight per hour. For now patient is on 3 units/h because of hypoglycemia on the higher rates. Continue with D5 NS at 150 cc/h. Check blood sugar hourly. Check triglyceride at 6 PM. Target triglyceride level less than 500. Keep n.p.o. In view of necrotizing pancreatitis Zosyn was started yesterday. Because patient continues to have fever check MRSA swab. Start patient on vancomycin at renal dose. Start patient on statins. High anion gap metabolic acidosis due to dehydration: Continue with IV fluids. We will continue to monitor BMP daily. Patient does not have any respiratory distress at present. Hyponatremia due to dehydration: Resolved Type 2 diabetes: Takes metformin at home. HbA1c 9. Check blood sugar hourly for now. N.p.o. for now. Patient would most likely need more aggressive treatment as an outpatient along with statins. Bilateral ovarian cyst Beta-hCG unremarkable Denying weight loss, night sweats or vaginal bleeding Full code N.p.o. Lovenox for DVT prophylaxis. Protonix for PUD prophylaxis Zofran as needed Attestations Medical Necessity Statement*: Hypertriglycerides induced pancreatitis Time Spent in Patient Care: Greater than 35 minutes (>than 50% of time spent in counselling and/or direct pt care on unit). Critical Care Time: Insulin drip Critical Care Time (min): 70 Coding Level of Care Code Acute Ambulance Dispatcher for g Fwd Diagnoses Hypertriglyceridemia E78.1 Dehydration E86.0 High anion gap metabolic acidosis E87.2 Hyponatremia E87.1 History of diabetes mellitus, type II Z86.39 Smoker F17.200 UTI (urinary tract infection) N39.0 Acute necrotizing pancreatitis K85.91
--- NOTE | 2019-09-07 16:19 | P.TS_ITS ---
Transfer Summary Providers Date of Admission: 09/05/19 18:46 Date of Discharge: 09/07/19 Attending Provider at Admission: Christen Serrano MD Attending Provider at Transfer: Tuan Chinchilla MD Anticipated Date of Transfer: Anticipated date of transfer: 09/07/19 Receiving Facility & Provider: Receiving Provider: [[facility] ICU] Receiving facility: [Dr. Martinez] Diagnoses at Discharge Discharge Diagnosis (1) Hypertriglyceridemia: Status: Acute (2) Dehydration: Status: Acute (3) High anion gap metabolic acidosis: Status: Acute (4) Hyponatremia: Status: Acute (5) History of diabetes mellitus, type II: Status: Acute (6) Smoker: Status: Acute (7) UTI (urinary tract infection): Status: Acute (8) Acute necrotizing pancreatitis: Status: Acute Reason for Visit Reason for Visit: [facility] Hospital Course Discharge Summary: Melony Hermosillo is a 49 year old female who carries diagnosis of type 2 diabetes being treated with metformin only, has had 3 episodes of pancreatitis in the past due to hypertriglyceridemia came in with chief complaint of recurrent nausea and vomiting. Patient is stating that this morning she started feeling nauseous when she woke up, she started experiencing epigastric pain 8/10, it was radiating towards her back, she has had more than 10 episodes of emesis and dry heaves. She is denying any fever, hematemesis, dysuria, chest pain or shortness of breath. She had similar episode in 2016 that is how she could catch her symptoms early on. Diagnostics in the ER revealed leukocytosis, normal hemodynamics, hypertension, CT abdomen revealed pancreatitis, triglyceride levels around 5000, drug screen negative, beta-hCG unremarkable, high anion gap metabolic acidosis due to dehydration, urinary ketones positive. Patient was admitted to the ICU and started on insulin drip for hypertriglyceridemia. She was also started on D5 normal saline to prevent from hypoglycemia. Her triglyceride came down from around 5000 to 550 today morning. Patient persistently had tachycardia and continued to spike fever going up to T-max of 100.9 Fahrenheit. Patient was started on Zosyn and vancomycin. Will repeat CT chest and pelvis with contrast was done which showed necrotizing pancreatitis. Her calcium levels, albumin levels continue to stay normal. Patient persistently had leukocytosis as well. 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 Dr. Martinez has gracefully accepted to take care of the patient. Patient is been transferred to ICU at [facility] for further care and has been discharged in hemodynamically stable condition. Physical Exam Narrative: EXAM NARRATIVE: General: No acute distress, AO x3, thin appearing HEENT: PERRLA, pupils bilaterally equal and reactive Chest: Normal vesicular breath sounds, no added sounds, equal good air entry bilaterally CVS: S1-S2 regular, no murmurs, no tachycardia, no gallops, no rubs Abdomen: Soft, tenderness in epigastric area, no rebound no guarding, no organomegaly, bowel sounds present but sluggish Neuro: No focal deficits, no facial deformity, AO x3, power 5/5 in all limbs TS Data Data Completed and Pending: Completed Studies During Hospitalization Category Date Time Status CT abdomen pelvis w con* [id number] Rout ine Cat Scan 09/07/19 07:[address] [place] wo/[place] [id number] Urgent Cat Scan 09/05/19 12:26 Completed Pending at discharge Category Date Time Status Blood Culture Sta t Lab 09/05/19 18:11 Results Blood Culture Sta t Lab 09/07/19 15:41 Ordered Complete Blood Co unt w/Auto AM LABS Lab 09/08/19 04:00 Ordered Comprehensive Met abolic Panel AM LA BS Lab 09/08/19 04:00 Ordered MRSA by PCR Leigh ne Lab 09/07/19 15:46 Uncollected Labs from last 24 hours 09/07/19 09/07/19 09/07/19 14:02 11:44 09:10 WBC RBC Hgb Hct MCV MCH MCHC RDW Plt Count MPV Neut % (Auto) Lymph % (Auto) [place] % (Auto) Eos % (Auto) Baso % (Auto) Neut # (Auto) Lymph # (Auto) [place] # (Auto) Eos # (Auto) Baso # (Auto) Nucleated RBC % (a uto) Nucleated RBCs # Sodium Potassium Chloride Carbon Dioxide Anion Gap BUN Creatinine GFR Calculation Glucose POC Glucose 133 131 Calculated Osmolal ity Calcium Total Bilirubin AST ALT Alkaline Phosphata se Total Protein Albumin Globulin Triglycerides 552 H LDL Cholesterol Di rect 64 09/07/19 09/07/19 09/07/19 05:39 04:40 04:40 WBC 17.7 H RBC 3.87 L Hgb 11.2 L Hct 34.2 L MCV 88.4 MCH 28.9 MCHC 32.7 RDW 13.9 Plt Count 223 MPV 10.8 H Neut % (Auto) 83.1 Lymph % (Auto) 9.6 [place] % (Auto) 4.8 Eos % (Auto) 0.6 Baso % (Auto) 0.4 Neut # (Auto) 14.7 H Lymph # (Auto) 1.7 [place] # (Auto) 0.8 Eos # (Auto) 0.1 Baso # (Auto) 0.1 Nucleated RBC % (a uto) 0 Nucleated RBCs # 0.0 Sodium 136 Potassium 2.9 L Chloride 102 Carbon Dioxide 22 Anion Gap 14.9 BUN 5 L Creatinine 0.8 GFR Calculation 76.9 L Glucose 173 H POC Glucose 199 Calculated Osmolal ity 282 L Calcium 8.0 L Total Bilirubin 0.5 AST 16 ALT 12 Alkaline Phosphata se 66 Total Protein 6.2 L Albumin 3.1 L Globulin 3.1 Triglycerides LDL Cholesterol Di rect 09/07/19 09/07/19 09/06/19 04:40 01:22 23:10 WBC RBC Hgb Hct MCV MCH MCHC RDW Plt Count MPV Neut % (Auto) Lymph % (Auto) [place] % (Auto) Eos % (Auto) Baso % (Auto) Neut # (Auto) Lymph # (Auto) [place] # (Auto) Eos # (Auto) Baso # (Auto) Nucleated RBC % (a uto) Nucleated RBCs # Sodium Potassium Chloride Carbon Dioxide Anion Gap BUN Creatinine GFR Calculation Glucose POC Glucose 178 192 Calculated Osmolal ity Calcium Total Bilirubin AST ALT Alkaline Phosphata se Total Protein Albumin Globulin Triglycerides 622 H LDL Cholesterol Di rect 69 09/06/19 09/06/19 09/06/19 19:06 17:45 17:45 WBC RBC Hgb Hct MCV MCH MCHC RDW Plt Count MPV Neut % (Auto) Lymph % (Auto) [place] % (Auto) Eos % (Auto) Baso % (Auto) Neut # (Auto) Lymph # (Auto) [place] # (Auto) Eos # (Auto) Baso # (Auto) Nucleated RBC % (a uto) Nucleated RBCs # Sodium 137 Potassium 3.3 L Chloride 99 Carbon Dioxide 23 Anion Gap 18.3 BUN 8 Creatinine 0.8 GFR Calculation 76.9 L Glucose 73 POC Glucose 127 Calculated Osmolal ity 278 L Calcium 8.2 L Total Bilirubin AST ALT Alkaline Phosphata se Total Protein Albumin Globulin Triglycerides 761 H LDL Cholesterol Di rect 60 09/06/19 15:37 WBC RBC Hgb Hct MCV MCH MCHC RDW Plt Count MPV Neut % (Auto) Lymph % (Auto) [place] % (Auto) Eos % (Auto) Baso % (Auto) Neut # (Auto) Lymph # (Auto) [place] # (Auto) Eos # (Auto) Baso # (Auto) Nucleated RBC % (a uto) Nucleated RBCs # Sodium Potassium Chloride Carbon Dioxide Anion Gap BUN Creatinine GFR Calculation Glucose POC Glucose 123 Calculated Osmolal ity Calcium Total Bilirubin AST ALT Alkaline Phosphata se Total Protein Albumin Globulin Triglycerides LDL Cholesterol Di rect Vitals: Last Vital Signs Temp 100.9 F H 09/07/19 15:00 Pulse 138 H 09/07/19 15:00 Resp 26 H 09/07/19 15:27 BP 143/66 09/07/19 15:00 Pulse Ox 95 09/07/19 15:27 TS Medications Medications Home Medications metformin 1,000 mg PO BID 09/05/19 [History Confirmed 09/05/19] Active Medications Atorvastatin Calcium (Lipitor) 40 mg PO BEDTIME PRICILA Last Admin: 09/06/19 20:23 Dose: 40 mg Documented by: Dextrose (D50w) 25 ml IVP ONCE PRN; Protocol PRN Reason: hypoglycemia protocol Dextrose (D50w) 50 ml IVP PRN PRN; Protocol PRN Reason: hypoglycemia protocol Dextrose (D50w) 25 ml IVP ONCE PRN; Protocol PRN Reason: hypoglycemia protocol Dextrose (D50w) 50 ml IVP PRN PRN; Protocol PRN Reason: hypoglycemia protocol Enoxaparin Sodium (Lovenox) 40 mg SUBCUT Q24H PRICILA Last Admin: 09/06/19 20:23 Dose: 40 mg Documented by: Glucagon (Glucagen) 1 mg IM ONCE PRN; Protocol PRN Reason: Adult Acute Hypoglycemia Prot Glucagon (Glucagen) 1 mg IM ONCE PRN; Protocol PRN Reason: Adult Acute Hypoglycemia Prot Dextrose (D5w) 500 mls @ 100 mls/hr IV ONCE PRN; Protocol PRN Reason: Adult Acute Hypoglycemia Prot Insulin Human Regular 250 unit (/ Sodium Chloride) 252.5 mls @ 0 mls/hr IV .Q0M PRICILA; Protocol Last Titration: 09/06/19 12:41 Dose: 3 mls/hr, 3 mls/hr Documented by: Dextrose (D5w) 500 mls @ 100 mls/hr IV ONCE PRN; Protocol PRN Reason: Adult Acute Hypoglycemia Prot Dextrose/Sodium Chloride (Dextrose 5%-Sod Chloride 0.9%) 1,000 mls @ 150 mls/hr IV .Q6H40M [facility] Last Admin: 09/07/19 12:03 Dose: 50 mls/hr Documented by: Piperacillin Sod/Tazobactam (Sod 3.375 gm/ Sodium Chloride) 50 mls @ 12.5 mls/hr IV Q8H [facility] Last Admin: 09/07/19 09:53 Dose: 12.5 mls/hr Documented by: Acetaminophen (Ofirmev) 1,000 mg in 100 mls @ 400 mls/hr IV Q8H PRN PRN Reason: fever Last Admin: 09/06/19 22:00 Dose: 400 mls/hr Documented by: Vancomycin HCl 750 mg/ Sodium (Chloride) 250 mls @ 250 mls/hr IV Q18H [facility]; Protocol Morphine Sulfate (Morphine) 2 mg IVP Q4H PRN PRN Reason: SEVERE PAIN Last Admin: 09/07/19 15:27 Dose: 2 mg Documented by: Ondansetron HCl (Zofran) 4 mg IVP Q6H PRN PRN Reason: NAUSEA AND VOMITING Last Admin: 09/07/19 10:08 Dose: 4 mg Documented by: Pantoprazole Sodium (Protonix) 40 mg IVP DAILY [facility] Last Admin: 09/07/19 09:53 Dose: 40 mg Documented by: Discharge Plan Discharge Patient Disposition: Xfer Other Condition: Stable Prescriptions: No Action metformin 1,000 mg tablet 1,000 mg PO BID RF: 0 Discharge Orders: Transfer Out of Facility (Order); Ordered 09/07/19 Ordered By: Tuan Chinchilla Discharge Diet: As Directed Discharge Activity: Resume usual activity Transfer Attestations Time Spent in Transfer Care*: greater than 30 min Specific Discharge Activities: Specific discharge activities: educating patient, discussing with briefcase sewer/social workers/dc planners, documenting/other paperwork and evaluating patient/reviewing data Status at Transfer: Cognitive status at transfer: cognitively intact , Behavioral status at transfer: cooperative , Functional status at transfer: independent ambulation Overall status at transfer: patient is progressing back to baseline Quality Metrics Clinical Quality Measures: During this hospital stay, did patient experience: None Coding Level of Care Code Acute 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
[2019-09-07 17:18] LABS: Glucose Point of Care 123 mg/dL (70-110)
[2019-09-07 17:18] LABS: Glucose Point of Care 122 mg/dL (70-110)
[2019-09-07] MEDS: vancomycin 750 MG in sodium chloride 0.9% 250 ML 250 MG IV (18:37)
[2019-09-07 19:50] LABS: Glucose Point of Care 131 mg/dL (70-110)
[2019-09-07 20:53] LABS: Glucose Point of Care 125 mg/dL (70-110)
[2019-09-07] MEDS: enoxaparin 40 mg/0.4 mL Syringe SUBCUT (22:07)
[2019-09-07 22:11] LABS: Glucose Point of Care 148 mg/dL (70-110)
--- NOTE | 2019-09-07 22:27 | PC.NURSE ---
Patient transferred to [facility] by EMS. Insulin infusing at 3 ml/hour, D5NS at 150 ml/hour. Bedside report given to emergency department rn. 2mg morphine given prior to transfer for patient comfort. All belongings sent with patient. Patient in stable condition upon transfer. Update called to receiving RN at [facility].
== END 2019-09-07 22:27 | disposition short-term general hospital (02) | DRG 439 ==
LOC: ER 17:57 → ICU 19:17
PROVIDERS: Internal Medicine; Nurse Practitioner Family; Admitting Provider Student in an Organized Health Care Education/Training Program; Emergency Provider Family Medicine; Visit Provider Student in an Organized Health Care Education/Training Program
DX: K85.91 Acute pancreatitis with uninfected necrosis, unspecified (principal); E87.2 Acidosis; E87.1 Hypo-osmolality and hyponatremia; N39.0 Urinary tract infection, site not specified; E11.9 Type 2 diabetes mellitus without complications; Z79.84 Long term (current) use of oral hypoglycemic drugs; I10 Essential (primary) hypertension; E86.0 Dehydration; F17.210 Nicotine dependence, cigarettes, uncomplicated; E78.1 Pure hyperglyceridemia; R00.0 Tachycardia, unspecified; N83.202 Unspecified ovarian cyst, left side; N83.201 Unspecified ovarian cyst, right side
CPT/HCPCS: 12345; 36415; 36416; 74170; 74177; 80048; 80053; 80061; 80306; 80307; 81001; 82436; 82962; 83036; 83540; 83550; 83605; 83615; 83690; 83721; 84133; 84145; 84300; 84439; 84443; 84478; 84481; 84702; 85025; 87040; 87077; 87086; 87186; 96372; 96375; 99282; C9113; J0131; J0696; J1650; J1815; J2270; J2405; J2543; J2765; J3370; J3480; J7040; J7050; Q9967

== ENCOUNTER 2020-07-02 12:59 | Outpatient (CLI) | payer BC, OTHER, SELFPAY ==
[2020-07-02 15:02] LABS: Basophils # 0.1 10^3/uL (0.0-0.1); Basophils % 0.4 %; Eosinophils # 0.2 10^3/uL (0.0-0.8); Eosinophils % 1.8 %; Hematocrit 38.4 % (37.0-47.0); Hemoglobin 12.4 g/dL (11.5-15.3); Lymphocytes # 3.3 10^3/uL (0.8-4.8); Lymphocytes % 28.4 %; Mean Corpuscular HGB Conc 32.3 g/dL (30.0-36.0); Mean Corpuscular Hemoglobin 27.7 pg (28.0-34.0); Mean Corpuscular Volume 85.9 fL (81-99); Mean Platelet Volume 11.1 fL (7.4-10.4); Monocytes # 0.5 10^3/uL (0.2-0.9); Monocytes % 4.1 %; Neutrophils # 7.58 10^3/uL (1.8-7.7); Neutrophils % 64.6 %; Nucleated Red Blood Cells % 0 %; Platelet Count 244 10^3/cmm (130-400); Red Blood Count 4.47 10^6/uL (4.1-5.3); Red Cell Distribution Width 14.4 % (12.1-15.1); White Blood Count 11.7 10^3/uL (4.0-10.0)
--- NOTE | 2020-07-02 15:09 | ONC CON_ITS ---
Dr. Dhillon New Patient Note Patient: Melony Hermosillo Unit #: [id number]: [id number] Dicatated By: Atilio Dhillon M.D.Date of Visit: Jul 02, 2020 Onc MED New Patient/Consult Referring Physician: Leroy Chamorro N.P. Chief Complaint: Leukocytosis. History of Present Illness: This is a 49-year-old woman with mild leukocytosis and mild anemia. She has hyperlipidemia and type 2 diabetes. She also has a history of chronic/recurrent pancreatitis. She had a scheduled follow-up at [facility] on 05/30/2020. Her CBC at that time showed a borderline low hemoglobin at 11.6 g with hematocrit 34.2%. The red cell indices were borderline low. The white blood cell count was slightly elevated at 12,600. The differential included 60% neutrophils, 30% lymphocytes, 6% monocytes, 2% eosinophils, and 1% basophils. The platelet count was normal at 206,000. Comprehensive metabolic profile showed normal renal function with BUN 8 and creatinine 0.52 mg/dL. Bilirubin and liver enzymes were normal. TSH also was normal at 2.740 ???mol/mL. Her hemoglobin A1c level was 7.6%. Her lipid profile showed significantly elevated triglycerides of 521 mg/dL with total cholesterol 246 mg/dL, HDL 35 mg/dL, and calculated LDL 119 mg/dL. A prior CBC on 04/12/2019 showed hemoglobin slightly higher at 12.8 g with white blood cell count 15,300 and platelet count 309,000. In September 2019 she had been admitted to the hospital with an episode of acute pancreatitis. Her white blood cell counts at that time were slightly higher, ranging from 17,400-21,800. A repeat CBC on 11/14/2019 showed hemoglobin 10.9 g with white blood cell count 11,900, and platelet count 342,000. For the past several months she has had a lot of fatigue, but she is still working and she has maintained normal activity. ECOG score is 0. Her appetite has been good and her weight has been stable. She has not had fever. She also does not complain of hot flashes, but she has had sweating at night for a couple of months. She has no shortness of breath, cough, or chest pain. Recently she has been having more heartburn despite taking pantoprazole. Her bowels tend to be loose in association with metformin, though recently she has had mild constipation. She says her stomach tends to hurt when she does not eat. She has no complaints with her bladder function. She is still having periods which are very from being light to heavy. She has joint pain, particularly in her right elbow, which she attributes to her work. She has been having headaches 2 or 3 times a week. She has some numbness in her right arm, also attributable to work. Past Medical History: Her medical history includes gastroesophageal reflux disease, history of chronic pancreatitis, hyperlipidemia, and type II diabetes. Past Surgical History: Her surgical/procedural history includes section in 2001 and in 2003, cholecystectomy, and rhinoplasty. Medications: Atorvastatin Calcium 1 (80 mg) Tablet Oral daily, Fenofibrate 1 (134 mg) Capsule Oral daily, Levemir 20 Units (of 100 Units/mL) Subcutaneous daily, metFORMIN HCl 1 (1000 mg) Tablet Oral b.i.d., Pantoprazole Sodium 1 (40 mg) Tablet, enteric coated Oral daily Allergies: No Known Allergies. Social History: Ms. Hermosillo is . She has a history of smoking 1 pack of cigarettes daily for 20 years. She has very occasional alcohol use. Family History: Father of prostate cancer at age 78. Mother still living at age 80. She has diabetes. Two brothers and 3 sisters are in good health. Review Of Symptoms: Constitutional - She has been feeling very fatigued. She works full-time and has mostly normal activity without restrictions. Her appetite is good and her weight is stable. No fevers. She's been having night sweats for about 2 months. She denies hot flashes. ECOG score is 0, Eyes - No change in vision, ENMT - No hearing loss or tinnitus. No sinus congestion/drainage. No mouth sores. No sore throat or difficulty swallowing, Hematologic/Lymphatic - No abnormal bruising or bleeding, Respiratory - No shortness of breath. No cough. No pleuritic pain or hemoptysis, Cardiovascular - No angina pain. No palpitations, Gastrointestinal - Denies any nausea or vomiting. She is taking pantoprazole but has noticed increased heartburn over the last week or so. She has some mild constipation. Denies any blood in stool or black stools, Genitourinary (F) - No dysuria or hematuria. No urinary frequency. No urgency or incontinence. She is still having regular periods, though sometimes heavy and sometimes light, Musculoskeletal - She has some pain in her right elbow, Integumentary - No skin rash or other skin changes, Neurologic - She has headaches 2-3 times a week. No dizziness. She has some numbness and tingling in her right arm. No other focal neurologic symptoms, Psychiatric - No anxiety or depression. No insomnia. Vital Signs: Performed on Jul 02, 2020 13:34: 5, 0, 21.44, 1.45 sq.m, 60 in, 99 %, 84 /min, 18 /min, 144/76 mm(hg) (HIGH), 97.2 F (LOW), and 109.8 lbs (HIGH). Physical Examination: Constitutional - She appears to be in good general health, Eyes - Sclerae nonicteric. Conjunctivae clear, ENMT - No lesions noted in the oral cavity, Neck - No mass or thyromegaly, Hematologic/Lymphatic - There are very tiny cervical lymph nodes palpable bilaterally. There is no clavicular or axillary adenopathy, Respiratory - Lungs are clear with good air movement bilaterally, Cardiovascular - Heart rhythm is regular. There is no murmur, gallop, or rub noted, Abdomen - Soft and non-tender. Liver and spleen are not enlarged. There is no abdominal mass or ascites noted and there is no inguinal adenopathy, Back/Spine - No spine or CVA tenderness noted, Extremities - No edema. Pedal pulses are palpable bilaterally, Integumentary - No rashes. No suspicious skin lesions noted, Neurologic - No focal neurologic deficits noted. Problem List: 1. Mild leukocytosis. 2. She also has mild anemia which appears to be most likely due to iron deficiency. 3. Hyperlipidemia. 4. Type 2 diabetes. 5. GERD. 6. History of chronic/recurrent pancreatitis. Problems Addressed with this Encounter and Plan: 1. Mild leukocytosis. Etiology is uncertain, but it dates back to at least April 2019, and while a myeloproliferative disorder cannot be entirely excluded, it does appear to be most likely reactive. The laboratory findings were reviewed with the patient and her , and we discussed the clinical implications. She will have additional laboratory studies today to include CBC, comprehensive metabolic profile, sed rate and CRP level, an LDH level, and a serum lipase. I also will request a FISH study for BCR/abl, and I will review the blood smear. She will have further evaluation as indicated 2. She also has mild anemia which appears to be most likely due to iron deficiency. Her laboratory studies will include serum iron studies, ferritin level, and B12 level. She will have further evaluation/treatment as indicated. Signed By: Atilio Dhillon M.D. <<Signature on File>>
[2020-07-02 15:42] LABS: Alanine Aminotransferase 16 U/L (0-33); Albumin Level 4.3 g/dL (3.5-5.2); Alkaline Phosphatase 93 IU/L (35-105); Aspartate Amino Transferase 18 U/L (0-32); Blood Urea Nitrogen 10 mg/dL (6-20); Calcium 9.5 mg/dL (8.5-10.5); Carbon Dioxide 27 mmol/L (22-29); Chloride 97 mmol/L (98-107); Ferritin 12 ng/mL (15-150); Globulin 2.9 g/dL (1.3-4.6); Glomerular Filtration Rate 107.2 mL/min (90-130); Glucose 335 mg/dL (65-115); Iron 33 ug/dL (37-145); Lipase 41 U/L (13-60); Osmolality Calculated 288 mOsm/kg (285-295); Percent Saturation 7.7 % (20-50); Sodium 133 mmol/L (136-145); Total Bilirubin 0.2 mg/dL (0.15-1.2); Total Iron Binding Capacity 426 mcg/dl; Total Protein 7.2 g/dL (6.6-8.7); Unsaturated Iron Binding 393 ug/dL (112-347); Vitamin B12 318 pg/mL (232-1245)
[2020-07-02 15:54] LABS: Lactate Dehydrogenase 145 U/L (135-214)
[2020-07-02 17:00] LABS: LAB Peripheral Smear Sent for Review
[2020-07-02 17:57] LABS: Erythrocyte Sedimentation Rate 22 mm/hr (0-15)
== END 2020-07-02 13:00 | disposition home or self-care (01) ==
LOC: ONCMED 13:05
PROVIDERS: PCP Internal Medicine; Visit Provider Internal Medicine Medical Oncology
DX: D72.829 Elevated white blood cell count, unspecified (principal); D64.9 Anemia, unspecified; M25.50 Pain in unspecified joint; K86.1 Other chronic pancreatitis; E78.5 Hyperlipidemia, unspecified; E11.9 Type 2 diabetes mellitus without complications; K21.9 Gastro-esophageal reflux disease without esophagitis
CPT/HCPCS: 36415; 80053; 82607; 82728; 83540; 83550; 83615; 83690; 85025; 85651; 86141; 88374; 99204

== ENCOUNTER 2025-02-02 19:48 | Inpatient (IN) | payer SELFPAY ==
--- OUTSIDE RECORDS SUMMARY | 2009-11-21 08:11 | XMS_ITS | Continuity of Care Document ---
Author Organization [facility] Address [address] [place] [address] Phone Care Team Providers Care Terminal Makeup Operator Name Role Phone Cuba Kinjal AMATO Unavailable Unavailable Allergies, Adverse Reactions, Alerts Substance Reaction Status Criticality No Known allergies Medications Medication Instructions Dosage Effective Dates (start - stop) Status Comments Lopid 600 mg Tab take 1 tablet (600MG ) by ORAL route 2 times every day 30 minutes before morning and evening meal 600 MG - Active Procedures Procedure Date Venipuncture Collection Of Blood 2009 Office/outpatient visit,est, min 2009 Void Ticket Office/outpatient visit,new, low 2009 Venipuncture Collection Of Blood 2009 Advance Directives Directive Yes / No Effective Date File Name No Information Encounters Encounter Description Practice Location Reason(s) For Visit Diagnoses Date Provider Providers Copied on Encounter [facility], [address], [place], [place], [id number], tel:[phone] [facility] No Information 0 Cu[address]. [address] [place], [address], [place]. [phone] Office/outpa tient visit,est, min [facility], [address], [place], [id number], tel:[phone] [facility] Procedures venipuncture (chief complaint) HYPERLIPIDEMI A [address] [place], [address], [place]. tel:[phone] Office/outpa tient visit,[facility], [address], [place], [place], [id number], [place] tel:[phone] [facility] Establish Care (chief complaint)hyp erlipidemia (chief complaint)MOO D CHANGES (chief complaint)sara ght gain (chief complaint) HYPERLIPIDEMI AHYPERLIPIDEM IAWEIGHT GAIN, ABN 0 [place]. [address] [place], [address], [place]. tel:[phone] Family History Family Member Type Diagnosis Age At Onset Problem (finding) Family history of Cance r Problem (finding) Family history of Diabe bonny mellitus Payers Payer name Insurance type Covered democrat ID Authoriza tion(s) [facility] PPO [id number] Social History Type Description Quantity Date Captured Comments Sex Female Smoking Status No Information Chief Complaint And Reason For Visit No Information Reason For Referral Reason For Referral No Information Plan Of Treatment Date Type Action Status Goal BMP fasting. Due on 010 due History Of Present Illness Encounter Date Complaint History Of Prese nt Illness No Information Functional Status Date Functional Assessmen t No Information Instructions Date Instruction Additional Infor mation No Information Assessments Type Assessment Date No Information Patient Care Teams Name Effective Dates (start - stop) Status Members No Information
--- OUTSIDE RECORDS SUMMARY | 2009-11-21 08:11 | XMS_ITS | Continuity of Care Document ---
Author Organization [facility] Address [address] [place] [address] Phone Care Team Providers Care Columnist Name Role Phone Cuba Kinjal AMATO Unavailable [...] Diagnoses Date Provider Providers Copied on Encounter [facility], [address], [place], [place], [id number], tel:[phone] [place] [facility] No Information 0 [place] [address]. [address] [place], [address], [place]. tel: [phone] Office/outpa tient visit,est, min [facility], [address], [place], [place], [id number], tel:[phone] [facility] Procedures venipuncture (chief complaint) HYPERLIPIDEMI A 0 [place], [address], [place]. tel:[phone] Office/outpa tient visit,[facility], [address], [place], [place], [id number], [place] tel:[phone] [facility] Establish Care (chief complaint)hyp erlipidemia (chief complaint)MOO D CHANGES (chief complaint)sara ght gain (chief complaint) HYPERLIPIDEMI AHYPERLIPIDEM IAWEIGHT GAIN, ABN 0 [place]. [address] [place], [address], [place]. tel:[phone] Family History Family Member Type Diagnosis Age At Onset Problem (finding) Family history of Cance r Problem (finding) Family history of Diabe bonny mellitus Payers Payer name Insurance type Covered democrat ID Authoriza tion(s) [facility] PPO [id number] Social History Type Description Quantity Date Captured [...]
[2025-02-02 19:52] VITALS: BP 178/84; PULSE 94; RESP 16; TEMP 36.7; O2SAT 100; BMI 20.5
--- NOTE | 2025-02-02 19:55 | ECG_ITS ---
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 Measurements Intervals [place] Rate: 99 P: 75 NE: 137 QRS: 59 QRSD: 97 T: 93 QT: 340 QTc: 437 Interpretive Statements SINUS RHYTHM POOR R WAVE PROGRESSION, POSSIBLE OLD SEPTAL INFARCTION NONSPECIFIC ST & T-WAVE ABNORMALITY No previous ECG available for comparison Electronically Signed On 02-03-2025 21:08:24 CDT by Jose Manuel Garvey M.D. [email or web address] [id number]
--- NOTE | 2025-02-02 20:05 | XRR_ITS ---
PROCEDURE INFORMATION: Exam: XR Chest Exam date and time: 02/02/2025 8:11 PM Age: 54 years old Clinical indication: Chest pressure; Prior surgery; Surgery date: 6+ months; Surgery type: Gb; C/O chest pain; Additional info: Cp TECHNIQUE: Imaging protocol: Radiologic exam of the chest. Views: 1 view. COMPARISON: CT abdomen pelvis w con* [id number] 09/07/2019 8:30 AM FINDINGS: Lungs: Clear, symmetrically inflated lungs. Pleural spaces: No pleural effusion. No pneumothorax. Heart/Mediastinum: Cardiac silhouette is normal in size for technique. Vasculature: Calcified aorta without dilation. Bones/joints: Age appropriate. XR/XR chest 1V portable [id number] IMPRESSION: No acute cardiopulmonary abnormality.
[2025-02-02 20:24] LABS: Hematocrit 39.8 % (36-47); Hemoglobin 14.10 g/dL (11.27-16.99); Mean Corpuscular HGB Conc 35.4 g/dL (30-55); Mean Corpuscular Hemoglobin 30.4 pg (27-33); Mean Corpuscular Volume 85.8 fl (85-98); Nucleated Red Blood Cells % 0 %; Platelet Count 224 10^3/cmm (157-399); Red Blood Count 4.64 10^6/uL (3.85-5.65); White Blood Count 10.77 10^3/uL (3.29-11.43)
--- NOTE | 2025-02-02 20:38 | W.ED.CHESTPA ---
Documented by User: DANAY Núñez 02/02/25 22:42 HPI - Chest Pain General: Chief Complaint: Chest Pain Stated Complaint: Chest Pain Time Seen by Provider: 02/02/25 20:03 Source: patient Mode of arrival: ambulatory Limitations: no limitations History of Present Illness: Patient is a 54-year-old female who presents to the emergency department for 3 weeks of left-sided chest pain. She has a history of diabetes and hypertension, untreated. Also has a history of pancreatitis, of which she states this feels different. History of GERD, states this also feels different. She notes that the pain radiates to her left arm, left back, and left neck and is worse with exertion and relieved by nitroglycerin. States that she took one of her husbands nitroglycerin. She does note associated shortness of breath on exertion. She notes that she has been taking Motrin and Tylenol without relief, has previously been seen in urgent care diagnosed with muscle strain and had an EKG at the time that was unremarkable. She is denying any fevers, cough, palpitations, syncope, nausea, vomiting, diaphoresis, or recent trauma. She has no prior cardiac workup, no personal history of heart attack or stroke. Denies any recent alcohol consumption. Does not report any unilateral leg swelling or history of DVT. She is a chronic everyday smoker. She is actively having pain at this time. MD complaint: chest pain Onset (ago): week(s) Timing of current episode: episodic Onset: during exertion Pain location: left chest Pain radiation: left arm, neck and left scapula Severity: severe Quality: sharp Relieving factors: nitroglycerin Exacerbating factors: exertion Associated symptoms: Deny abdominal pain, dyspnea, fever(s), nausea, palpitations, syncope or vomiting Treatment prior to arrival: nitroglycerin and other (NSAIDs, Acetaminophen) Risk Factors: Coronary artery disease risk factors: diabetes, smoking history and hypertension Related Data Previous Rx's ?Medication ?Instructions ?Recorded diclofenac sodium 3 % topical gel 1 applic topical BID #100 grams 01/18/25 (Solaraze) Allergies Allergy/AdvReac Type Severity Reaction Status Date / Time No Known Allergies Allergy Verified 02/02/25 20:00 Review of Systems General: Reports: 10 or more systems reviewed and unremarkable except in HPI and below Const: Denies: fever(s), chills or fatigue Eyes: Denies: change in vision ENMT: Denies: throat pain, ear or mastoid pain or nasal discharge Card: Reports: chest pain and dyspnea on exertion; Denies: palpitations, swelling of feet/ankles, lightheadedness or syncope Resp: Denies: dyspnea, productive cough or wheezing GI: Denies: abdominal pain, nausea, vomiting, diarrhea or constipation : Denies: flank pain, difficulty voiding, dysuria or urinary frequency Musc: Reports: neck pain, back pain and joint pain Skin/Breast: Denies: rash Neuro: Denies: headache(s), numbness in extremities or weakness in extremities PFSH ED PFSH: Medical History History of diabetes mellitus, type II Surgical History History of History of cholecystectomy History of rhinoplasty Family History Denies family history of Hyperlipidemia Lung disease Hypertension Social History Smoking and tobacco/nicotine status: never used tobacco/nicotine Alcohol intake: never Substance/Drug Use: never Household members: spouse Housing: House Marital status: Physical Exam Const: COMMON NORMALS: no acute distress and no limitations GENERAL APPEARANCE: cooperative, comfortable and well developed ORIENTATION/CONSCIOUSNESS: Yes awake HENMT: COMMON NORMALS: normocephalic, atraumatic and hearing grossly normal bilaterally HEAD & SCALP: normocephalic and atraumatic Eye: COMMON NORMALS: Equal, round and reactive pupils present, EOMs intact bilaterally and conjunctivae normal CONJUNCTIVA: Yes conjunctivae normal PUPIL: Yes Equal, round and reactive pupils present Neck/C-Spine: COMMON NORMALS: full ROM, supple and no JVD Resp: COMMON NORMALS: normal respiratory effort, No retractions, No use of accessory muscles and clear to auscultation bilaterally AUSCULTATION: clear to auscultation bilaterally Cardio: COMMON NORMALS: no JVD, regular rate, regular rhythm, No clicks present (Cardio), No murmurs present (Cardio) and No rub (Cardio) RATE: regular rate RHYTHM: regular rhythm GI: COMMON NORMALS: Normal to inspection, nondistended, normoactive bowel sounds present, Soft to palpation and non-tender AUSCULTATION: Yes normoactive bowel sounds PALPATION: Yes Soft to palpation RECTAL EXAM: deferred Extremity: COMMON NORMALS: normal to inspection, full ROM and capillary refill normal Skin: COMMON NORMALS: no rashes or lesions noted GENERAL SKIN EXAM: no rashes or lesions noted Course Vital Signs: Vital signs: Vital Signs Temperature 98.1 F 02/02/25 19:52 Pulse Rate 108 H 02/03/25 00:00 Respiratory Rate 16 02/03/25 00:00 Blood Pressure 180/76 02/03/25 00:00 Pulse Oximetry 100 02/03/25 00:00 Oxygen Delivery Me thod Room Air 02/02/25 23:56 MDM - Chest Pain Medical Decision Making Patient presented with chest pain for the past 3 weeks, left anterior chest radiating to left arm, neck, and back. History of diabetes and pancreatitis, states that this feels different than her previous episodes of pancreatitis. She also had a history of GERD but also stated this felt different. This was worsened by physical exertion, accompanied with shortness of breath. Of note was relieved by taking a nitroglycerin. Here initial troponin elevated 143, no rhythm changes on EKG. Rest of her lab work unremarkable. CTA ordered does not show any obvious signs of dissection, no PE. Spoke to Dr. Garvey, internal communications writer, stating to make n.p.o. after midnight and he started on Plavix, heparin, statin, and obtain echo. Spoke to Dr. Morton, hospitalist, agreed except the patient into the hospital. Patient is informed of this plan, agrees and all of the questions and concerns rest at this time. Dr. Galvan putting in admit orders. Lab Data 02/02/25 20:11 02/02/25 20:11 Radiology Impressions Chest X-Ray 02/02/25 20:05 IMPRESSION: No acute cardiopulmonary abnormality. Chest CTA 02/02/25 21:28 IMPRESSION: 1. No findings of acute pulmonary embolism. There is insufficient contrast in the thoracic aorta to exclude dissection, but there is no displaced calcium to provide indirect evidence of dissection. 2. Aortic valve leaflet calcifications are noted. There is mural thickening of the left ventricle. Correlate with any clinical findings of aortic stenosis. 3. Mild centrilobular emphysema. No acute airspace disease. COMMENTS: The presence of pulmonary emphysema on CT is an independent risk factor for lung cancer. In the absence of a history or active diagnosis of lung cancer, it is recommended that this patient with emphysema be evaluated for enrollment in a low dose CT lung cancer screening program. Laboratory Results WBC 10.77 10^3/uL (3.29-11.43) 02/02/25 20:11 RBC 4.64 10^6/uL (3.85-5.65) 02/02/25 20:11 Hgb 14.10 g/dL (11.27-16.99) 02/02/25 20:11 Hct 39.8 % (36-47) 02/02/25 20:11 MCV 85.8 fl (85-98) 02/02/25 20:11 MCH 30.4 pg (27-33) 02/02/25 20:11 MCHC 35.4 g/dL (30-55) 02/02/25 20:11 RDW 11.8 % (12.1-15.1) L 02/02/25 20:11 Plt Count 224 10^3/cmm (157-399) 02/02/25 20:11 MPV 10.6 fL (7.4-10.4) H 02/02/25 20:11 Neut % (Auto) 59.2 % 02/02/25 20:11 Lymph % (Auto) 32.7 % 02/02/25 20:11 [facility] % (Auto) 5.0 % 02/02/25 20:11 Eos % (Auto) 1.9 % 02/02/25 20:11 Baso % (Auto) 0.5 % 02/02/25 20:11 Neut # (Auto) 6.38 10^3/uL (1.8-7.7) 02/02/25 20:11 Lymph # (Auto) 3.5 10^3/uL (0.8-4.8) 02/02/25 20:11 [facility] # (Auto) 0.5 10^3/uL (0.2-0.9) 02/02/25 20:11 Eos # (Auto) 0.2 10^3/uL (0.0-0.8) 02/02/25 20:11 Baso # (Auto) 0.1 10^3/uL (0.0-0.1) 02/02/25 20:11 Nucleated RBC % (auto) 0 % 02/02/25 20:11 Nucleated RBCs # 0.0 /100WBC 02/02/25 20:11 Sodium 132 mmol/L (136-145) L 02/02/25 20:11 Potassium 3.8 mmol/L (3.5-5.1) 02/02/25 20:11 Chloride 91 mmol/L (98-107) L 02/02/25 20:11 Carbon Dioxide 25 mmol/L (22-29) 02/02/25 20:11 Anion Gap 19.8 (5-19) H 02/02/25 20:11 BUN 12 mg/dL (6-20) 02/02/25 20:11 Creatinine 0.6 mg/dL (0.5-0.9) 02/02/25 20:11 GFR Calculation 105.0 mL/min (90-130) 02/02/25 20:11 Glucose 451 mg/dL (65-115) H 02/02/25 20:11 Calculated Osmolality 293 mOsm/kg (285-295) 02/02/25 20:11 Calcium 9.9 mg/dL (8.5-10.5) 02/02/25 20:11 Total Bilirubin 0.2 mg/dL (0.15-1.2) 02/02/25 20:11 AST 25 U/L (0-32) 02/02/25 20:11 ALT 25 U/L (0-33) 02/02/25 20:11 Alkaline Phosphatase 142 U/L (35-105) H 02/02/25 20:11 Troponin T Baseline 143 ng/L (0-10) H* 02/02/25 20:11 Troponin T 120 Minute 209.2 ng/L (0-10) H 02/02/25 21:44 Delta Troponin T 66.2 ABS# (0-10) H* 02/02/25 21:44 NT-Pro-B Natriuret Pep 821 pg/mL (0-125) H 02/02/25 20:11 Total Protein 6.9 g/dL (6.6-8.7) 02/02/25 20:11 Albumin 4.4 g/dL (3.5-5.2) 02/02/25 20:11 Globulin 2.5 g/dL (1.3-4.6) 02/02/25 20:11 Lipase 36 U/L (13-60) 02/02/25 20:11 All radiology interpretation(s) finalized by discharge Discharge Plan Discharge Patient Disposition: Admitted As Inpatient Clinical Impression: Acute non-ST elevation myocardial infarction (NSTEMI) Condition: Stable Coding Level of Care Code ED Public Address System Mechanic for Chg Fwd Heart Score HEART Score Components History: Highly Suspicious EKG: Non-specific Changes Age: 45-64 yrs Risk Factors: >/=3 Risk Factors Troponin: Baseline Trop >45 ng/L HEART Score RESULT HEART Score: 8 Documented by User: Richi Galvan DO 02/03/25 00:17 HPI - Chest Pain General: Chief Complaint: Chest Pain Stated Complaint: Chest Pain Time Seen by Provider: 02/02/25 20:03 Related Data Previous Rx's ?Medication ?Instructions ?Recorded diclofenac sodium 3 % topical gel 1 applic topical BID #100 grams 01/18/25 (Solaraze) Allergies Allergy/AdvReac Type Severity Reaction Status Date / Time No Known Allergies Allergy Verified 02/02/25 20:00 [facility] ED PFSH: Medical History History of diabetes mellitus, type II Surgical History History of History of cholecystectomy History of rhinoplasty Family History Denies family history of Hyperlipidemia Lung disease Hypertension Social History Smoking and tobacco/nicotine status: never used tobacco/nicotine Alcohol intake: never Substance/Drug Use: never Household members: spouse Housing: House Marital status: Course Vital Signs: Vital signs: Vital Signs Temperature 98.1 F 02/02/25 19:52 Pulse Rate 108 H 02/03/25 00:00 Respiratory Rate 16 02/03/25 00:00 Blood Pressure 180/76 02/03/25 00:00 Pulse Oximetry 100 02/03/25 00:00 Oxygen Delivery Me thod Room Air 02/02/25 23:56 MDM - Chest Pain Medical Decision Making Patient presented with chest pain for the past 3 weeks, left anterior chest radiating to left arm, neck, and back. History of diabetes and pancreatitis, states that this feels different than her previous episodes of pancreatitis. She also had a history of GERD but also stated this felt different. This was worsened by physical exertion, accompanied with shortness of breath. Of note was relieved by taking a nitroglycerin. Here initial troponin elevated 143, no rhythm changes on EKG. Rest of her lab work unremarkable. CTA ordered does not show any obvious signs of dissection, no PE. Spoke to Dr. Garvey, internal communications writer, stating to make n.p.o. after midnight and he started on Plavix, heparin, statin, and obtain echo. Spoke to Dr. Morton, hospitalist, agreed except the patient into the hospital. Patient is informed of this plan, agrees and all of the questions and concerns rest at this time. Dr. Galvan putting in admit orders. Patient was originally seen by Mr. Jose PA-C. I agree with his history, evaluation, and management. Lab Data 02/02/25 20:11 02/02/25 20:11 Radiology Impressions Chest X-Ray 02/02/25 20:05 IMPRESSION: No acute cardiopulmonary abnormality. Chest CTA 02/02/25 21:28 IMPRESSION: 1. No findings of acute pulmonary embolism. There is insufficient contrast in the thoracic aorta to exclude dissection, but there is no displaced calcium to provide indirect evidence of dissection. 2. Aortic valve leaflet calcifications are noted. There is mural thickening of the left ventricle. Correlate with any clinical findings of aortic stenosis. 3. Mild centrilobular emphysema. No acute airspace disease. COMMENTS: The presence of pulmonary emphysema on CT is an independent risk factor for lung cancer. In the absence of a history or active diagnosis of lung cancer, it is recommended that this patient with emphysema be evaluated for enrollment in a low dose CT lung cancer screening program. Laboratory Results WBC 10.77 10^3/uL (3.29-11.43) 02/02/25 20:11 RBC 4.64 10^6/uL (3.85-5.65) 02/02/25 20:11 Hgb 14.10 g/dL (11.27-16.99) 02/02/25 20:11 Hct 39.8 % (36-47) 02/02/25 20:11 MCV 85.8 fl (85-98) 02/02/25 20:11 MCH 30.4 pg (27-33) 02/02/25 20:11 MCHC 35.4 g/dL (30-55) 02/02/25 20:11 RDW 11.8 % (12.1-15.1) L 02/02/25 20:11 Plt Count 224 10^3/cmm (157-399) 02/02/25 20:11 MPV 10.6 fL (7.4-10.4) H 02/02/25 20:11 Neut % (Auto) 59.2 % 02/02/25 20:11 Lymph % (Auto) 32.7 % 02/02/25 20:11 [facility] % (Auto) 5.0 % 02/02/25 20:11 Eos % (Auto) 1.9 % 02/02/25 20:11 Baso % (Auto) 0.5 % 02/02/25 20:11 Neut # (Auto) 6.38 10^3/uL (1.8-7.7) 02/02/25 20:11 Lymph # (Auto) 3.5 10^3/uL (0.8-4.8) 02/02/25 20:11 [facility] # (Auto) 0.5 10^3/uL (0.2-0.9) 02/02/25 20:11 Eos # (Auto) 0.2 10^3/uL (0.0-0.8) 02/02/25 20:11 Baso # (Auto) 0.1 10^3/uL (0.0-0.1) 02/02/25 20:11 Nucleated RBC % (auto) 0 % 02/02/25 20:11 Nucleated RBCs # 0.0 /100WBC 02/02/25 20:11 Sodium 132 mmol/L (136-145) L 02/02/25 20:11 Potassium 3.8 mmol/L (3.5-5.1) 02/02/25 20:11 Chloride 91 mmol/L (98-107) L 02/02/25 20:11 Carbon Dioxide 25 mmol/L (22-29) 02/02/25 20:11 Anion Gap 19.8 (5-19) H 02/02/25 20:11 BUN 12 mg/dL (6-20) 02/02/25 20:11 Creatinine 0.6 mg/dL (0.5-0.9) 02/02/25 20:11 GFR Calculation 105.0 mL/min (90-130) 02/02/25 20:11 Glucose 451 mg/dL (65-115) H 02/02/25 20:11 Calculated Osmolality 293 mOsm/kg (285-295) 02/02/25 20:11 Calcium 9.9 mg/dL (8.5-10.5) 02/02/25 20:11 Total Bilirubin 0.2 mg/dL (0.15-1.2) 02/02/25 20:11 AST 25 U/L (0-32) 02/02/25 20:11 ALT 25 U/L (0-33) 02/02/25 20:11 Alkaline Phosphatase 142 U/L (35-105) H 02/02/25 20:11 Troponin T Baseline 143 ng/L (0-10) H* 02/02/25 20:11 Troponin T 120 Minute 209.2 ng/L (0-10) H 02/02/25 21:44 Delta Troponin T 66.2 ABS# (0-10) H* 02/02/25 21:44 NT-Pro-B Natriuret Pep 821 pg/mL (0-125) H 02/02/25 20:11 Total Protein 6.9 g/dL (6.6-8.7) 02/02/25 20:11 Albumin 4.4 g/dL (3.5-5.2) 02/02/25 20:11 Globulin 2.5 g/dL (1.3-4.6) 02/02/25 20:11 Lipase 36 U/L (13-60) 02/02/25 20:11 Discharge Plan Discharge Patient Disposition: Admitted As Inpatient Clinical Impression: Acute non-ST elevation myocardial infarction (NSTEMI) Condition: Stable Coding Level of Care Code ED Public Address System Mechanic for [place] Fwd Heart Score HEART Score RESULT HEART Score: 8
[2025-02-02 20:52] LABS: Alanine Aminotransferase 25 U/L (0-33); Albumin Level 4.4 g/dL (3.5-5.2); Alkaline Phosphatase 142 U/L (35-105); Anion Gap 19.8 (5-19); Aspartate Amino Transferase 25 U/L (0-32); Blood Urea Nitrogen 12 mg/dL (6-20); Calcium 9.9 mg/dL (8.5-10.5); Carbon Dioxide 25 mmol/L (22-29); Chloride 91 mmol/L (98-107); Creatinine Clr Calc Pharmacy 80.3186; Globulin 2.5 g/dL (1.3-4.6); Glucose 451 mg/dL (65-115); Lipase 36 U/L (13-60); Osmolality Calculated 293 mOsm/kg (285-295); Potassium 3.8 mmol/L (3.5-5.1); Sodium 132 mmol/L (136-145); Total Protein 6.9 g/dL (6.6-8.7); Troponin(5th) Baseline 143 ng/L (0-10)
[2025-02-02 20:59] LABS: NT Pro B Type Natriuretic Pept 821 pg/mL (0-125)
[2025-02-02 21:08] VITALS: BP 155/79; PULSE 104; RESP 16; O2SAT 97
--- NOTE | 2025-02-02 21:28 | CTR_ITS ---
PROCEDURE INFORMATION: Exam: CTA Chest With Contrast Exam date and time: 02/02/2025 9:46 PM Age: 54 years old Clinical indication: Pain and abnormal findings; Abnormal diagnostic tests; Radiating; Prior surgery; Surgery date: 6+ months; Surgery type: Gb; Chest and upper back pain with moderately elevated troponin. ; Additional info: Back pain, cp, elevated trop TECHNIQUE: Imaging protocol: Computed tomographic angiography of the chest with contrast. Exam focused on the arteries. 3D rendering (Not supervised by radiologist): MIP and/or 3D reconstructed images were created by the technologist. Radiation optimization: All CT scans at this facility use at least one of these dose optimization techniques: automated exposure control; mA and/or kV adjustment per patient size (includes targeted exams where dose is matched to clinical indication); or iterative reconstruction. Contrast material: OMNI 350; Contrast volume: 56 ml; Contrast route: INTRAVENOUS (IV); COMPARISON: CR (CHEST, ) 02/02/2025 8:11 PM RADIATION DOSE METRICS: Total DLP (mGy-cm): 173.91 FINDINGS: Pulmonary arteries: Normal. No pulmonary emboli. Aorta: Normal caliber thoracic aorta with mild calcific plaque. There is insufficient contrast in the aortic lumen to exclude acute dissection or penetrating ulcer. Thyroid: Homogeneous thyroid. Lungs: Mild centrilobular emphysema. Scattered calcified granulomata. No acute airspace disease. Pleural spaces: Unremarkable. No pneumothorax. No pleural effusion. Heart: Aortic valve leaflet calcifications are noted. There is mural thickening of the left ventricle. Coronary arteries: Mild coronary artery calcification. Lymph nodes: No mediastinal, supraclavicular, or axillary adenopathy. Several non pathologically enlarged mediastinal lymph nodes are noted. Gallbladder and biliary ducts: Prior cholecystectomy. Spleen: Visualized liver and spleen are normal. Stomach: Postprandial stomach. Bones/joints: Unremarkable. No acute fracture. Soft tissues: Unremarkable. CT/CT angio chest PE protcl [id number] IMPRESSION: 1. No findings of acute pulmonary embolism. There is insufficient contrast in the thoracic aorta to exclude dissection, but there is no displaced calcium to provide indirect evidence of dissection. 2. Aortic valve leaflet calcifications are noted. There is mural thickening of the left ventricle. Correlate with any clinical findings of aortic stenosis. 3. Mild centrilobular emphysema. No acute airspace disease. COMMENTS: The presence of pulmonary emphysema on CT is an independent risk factor for lung cancer. In the absence of a history or active diagnosis of lung cancer, it is recommended that this patient with emphysema be evaluated for enrollment in a low dose CT lung cancer screening program.
[2025-02-02] MEDS: iohexol 350 mg/mL 500 mL Btl (per mL) IV (21:48)
[2025-02-02] MEDS: heparin 5,000 unit/mL INJ 1 mL IVP (22:17)
[2025-02-02] MEDS: heparin drip 25,000 UNIT/500 ML PREMIX 13 UNIT IV (22:18)
[2025-02-02 22:20] VITALS: BP 157/76; PULSE 90
[2025-02-02] MEDS: nitroglycerin 1 gm/inch oint Pkt 0.5 INCH TOPICAL (22:20)
[2025-02-02 22:24] LABS: Troponin 5 2HR 209.2 ng/L (0-10); Troponin 5 2HR Delta 66.2 ABS# (0-10)
[2025-02-02 22:27] VITALS: BP 157/76; PULSE 97; RESP 16; O2SAT 99
[2025-02-02 22:47] VITALS: BP 162/62; PULSE 87; RESP 16; O2SAT 100
--- NOTE | 2025-02-02 22:53 | P.HP_ITS ---
Providers/Chief Complaint 2 Admitting Physician: YARITZA SANTOYO DO--patient admitted before midnight Primary Care Provider: Leroy Chamorro NP Chief Complaint: Chest Pain History of Present Illness Melony Hermosillo is a 54 year old female with medical history significant for nicotine addiction, hyperlipidemia, hypertriglyceridemia, history of diabetes type 2 who presented to the emergency room after 3 weeks of ongoing chest pain that radiates to the neck to the back and axilla. Patient claimed that the chest pain is burning stabbing sharp pain in quality. And patient also related that the chest pain is movement related whenever she takes a deep breath it hurts whenever she vacuums it hurts so bad into the left arm and into the back. On arrival to the emergency room chest pain protocol initiated and initial troponin was 143 with no delta second troponin was further elevated to 209 with a delta of 66.2. The third troponin is pending. By criteria this is a non- STEMI. Patient EKG was very textbook with no abnormality. Sinus rhythm intervals are within normal range there are no ST-T wave abnormality. At this time of my evaluation of the patient patient had denied chest pains. Patient got relief of chest pain with nitro. Cardiology has been consulted by the emergency room department and he was advised to have the patient on heparin drip right after the first troponin and patient had not had any further chest pain since then. Patient also had received full aspirin, loaded Plavix at 600 on heparin drip started. Patient also received statin with atorvastatin 80 milligram x 1. At my consultation I asked that patient have a CTA of the chest and that was done she has no dissection there is no PE. Patient has been admitted to stepdown unit for chest pain rule out CAD Patient risk factor is glaring she is a heavy smoker and also has history of diabetes type 2 and I do not see any hypoglycemic medications my that I see any medication outpatient on this patient. Review of Systems 2 Narrative: System review upon 10 organ reviewed and noted to be unremarkable except for chest pain with radiation to the left arm into the back and to the axilla noted to be atypical Medications/Allergies Home Medications ?Medication ?Instructions ?Recorded ?Confirmed ?Last Taken ?Type diclofenac sodium 3 % topical gel 1 applic topical BID #100 grams 01/18/25 01/18/25 Unknown Rx ([facility]) Allergies Allergy/AdvReac Type Severity Reaction Status Date / Time No Known Allergies Allergy Verified 02/02/25 20:00 PFSH Acute 2 PFSH: Medical History History of diabetes mellitus, type II Surgical History History of History of cholecystectomy History of rhinoplasty Family History Denies family history of Hyperlipidemia Lung disease Hypertension Social History Smoking and tobacco/nicotine status: never used tobacco/nicotine Alcohol intake: never Substance/Drug Use: never Household members: spouse Housing: House Marital status: Vitals/I&O/Wt Last Vital Signs Temp 98.1 F 02/02/25 19:52 Pulse 87 02/02/25 22:47 Resp 16 02/02/25 22:47 BP 162/62 02/02/25 22:47 Pulse Ox 100 02/02/25 22:47 O2 Del Method Room Air 02/02/25 22:47 02/02/25 02/02/25 02/02/25 06:59 14:59 22:59 Intake Total 0 / 0 Balance 0 / 0 Weight last 48 hrs Weight 47.718 kg Physical Exam 2 Narrative: Generally patient is doing okay sitting up in the bed here in the emergency room denies any complaints at this particular time denies any chest pains. Patient on heparin drip. Patient had received all care here in the emergency room with medications as aforementioned in HPI HEENT normocephalic/atraumatic neck neck is supple cardiovascular heart rate is regular lungs are pretty much clear abdomen soft nontender nondistended unremarkable extremities are intact no edema has good pulses neurology has no focality lab studies lab studies reviewed and noted. Data 02/02/25 20:11 02/02/25 20:11 A&P Assessment and plan 1. Acute non-ST elevation myocardial infarction (NSTEMI): 2. Smoker: 3. Hypertriglyceridemia: 4. History of diabetes mellitus, type II: 5. Dehydration: Plan: Non-ST elevation MT - Continue chest pain protocol care and treatment to rule out CAD - Patient loaded on statin full aspirin and Plavix and heparin drip to continue - Cardiology consulted - Echocardiogram ordered - Smoking cessation addressed on the effect of smoking in the cardiovascular system Risk factors and care-history of diabetes type 2/heavy smoker/hyperlipidemia/hypertriglyceridemia - Patient need to have these addressed for appropriate medical management patient is not on any medication - Patient is not specifically watching diet this is important that diet exercise smoking cessation be implemented GI DVT prophylaxis in place PDMP PDMP Reviewed: Last Reviewed 02/02/25 23:50 by Yaritza Santoyo MD Attestations 2 Medical Necessity Statement*: Patient is with ongoing atypical chest pain with positive delta troponin most allow 23-hour stay for care of the patient that may extend to a 2 midnight stay. Coding Level of Care Code 26913 Diagnoses Acute non-ST elevation myocardial infarction (NSTEMI) I21.4 Smoker F17.200 Hypertriglyceridemia E78.1 History of diabetes mellitus, type II Z86.39 Dehydration E86.0 Time Spent (min) 60
[2025-02-02 23:56] VITALS: BP 152/88; PULSE 103; RESP 16; O2SAT 99
[2025-02-03] VITALS (42 sets, daily range): BP systolic 92–180; BP diastolic 55–96; PULSE 68–118; RESP 13–27; TEMP 36.7; O2SAT 96–100; BMI 20.5
[2025-02-03 02:52] LABS: Troponin 5 6HR Delta 79.0 ng/L (0-12)
[2025-02-03 02:53] LABS: Troponin 5 6HR 222.0 ng/L (0-10)
[2025-02-03] MEDS: nitroglycerin 1 gm/inch oint Pkt 0.5 INCH TOPICAL ×2 (04:27→08:57)
[2025-02-03 05:31] LABS: Partial Thromboplastin Time 77.6 SECONDS (23.9-36.7)
[2025-02-03 06:54] LABS: Hematocrit 38.0 % (36-47); Hemoglobin 13.80 g/dL (11.27-16.99); Mean Corpuscular HGB Conc 36.3 g/dL (30-55); Mean Corpuscular Hemoglobin 31.2 pg (27-33); Mean Corpuscular Volume 85.8 fl (85-98); Nucleated Red Blood Cells % 0 %; Platelet Count 175 10^3/cmm (157-399); Red Blood Count 4.43 10^6/uL (3.85-5.65); White Blood Count 11.28 10^3/uL (3.29-11.43)
[2025-02-03 07:56] LABS: Estmated Average Glucose 292; Hemoglobin A1C 11.8 % (4.0-6.0)
[2025-02-03 08:37] LABS: Cholesterol 273 mg/dL (0-200); HDL Cholesterol 29 mg/dL (60-100); Magnesium 1.6 mg/dL (1.7-2.3); Triglycerides 825 mg/dL (0-150); VLDL Cholestrol Calculation 165 mg/dL (0-30)
[2025-02-03 08:57] LABS: Thyroid Stimulating Hormone 1.86 uIU/mL (0.27-4.20)
[2025-02-03 09:09] LABS: Anion Gap 19.0 (5-19); Blood Urea Nitrogen 7 mg/dL (6-20); Carbon Dioxide 16 mmol/L (22-29); Chloride 101 mmol/L (98-107); Potassium 4.0 mmol/L (3.5-5.1); Sodium 132 mmol/L (136-145)
[2025-02-03 09:10] LABS: Alanine Aminotransferase 26 U/L (0-33); Albumin Level 4.0 g/dL (3.5-5.2); Alkaline Phosphatase 135 U/L (35-105); Aspartate Amino Transferase 50 U/L (0-32); Calcium 8.7 mg/dL (8.5-10.5); Creatinine Clr Calc Pharmacy 120.4779; Globulin 2.3 g/dL (1.3-4.6); Glucose 349 mg/dL (65-115); Osmolality Calculated 286 mOsm/kg (285-295); Total Protein 6.3 g/dL (6.6-8.7)
--- NOTE | 2025-02-03 10:59 | P.CONIM_ITS ---
Providers/Reason For Consult 2 Consulting Physician/Specialty*: Jose Manuel Garvey MD Reason for Consult*: Chest pain Requesting Physician: Perla De La Vega MD Attending Physician: Perla De La Vega MD Primary Care Provider: Leroy Chamorro NP History of Present Illness History of Present Illness Melony Hermosillo is a 54 year old female with a history of hypertriglyceridemia, type 2 diabetes mellitus, pancreatitis, and smoking who presented to the emergency room with chest pain radiating to her left arm with associated shortness of breath. She had been having the symptoms intermittently over the last 3 weeks. Medications/Allergies Home Medications ?Medication ?Instructions ?Recorded ?Confirmed ?Last Taken ?Type diclofenac sodium 3 % topical gel 1 applic topical BID PRN Pain 02/03/25 02/03/25 Unknown History Allergies Allergy/AdvReac Type Severity Reaction Status Date / Time No Known Allergies Allergy Verified 02/02/25 20:00 Current Medications Generic Name Dose Route Start Last Admin Trade Name Freq PRN Reason Stop Dose Admin Heparin Sodium/Sodium Chloride 25,000 unit in 500 mls @ 0 mls/hr 02/02/25 21:00 02/03/25 05:39 Heparin Drip IV 12.62 unit/kg/hr CONT PRICILA 12.04 mls/hr Protocol Titration Per Protocol Sodium Chloride 1,000 mls @ 75 mls/hr 02/02/25 22:52 02/03/25 04:31 Sodium Chloride 0.9% IV 75 mls/hr .[id number] PRICILA Administration Nitroglycerin 0.5 inch 02/02/25 21:15 02/03/25 08:57 Nitroglycerin 1 Gm/Inch Oint Pkt TOPICAL 0.5 inch Q6H PRICILA Administration Pantoprazole Sodium 40 mg 02/03/25 05:00 02/03/25 04:[address] 40 Mg Tablet PO 40 mg DAILY PRICILA Administration PFSH Acute 2 PFSH: Medical History History of diabetes mellitus, type II Surgical History History of History of cholecystectomy History of rhinoplasty Family History Denies family history of Hyperlipidemia Lung disease Hypertension Social History Smoking and tobacco/nicotine status: never used tobacco/nicotine Alcohol intake: never Substance/Drug Use: never Household members: spouse Housing: House Marital status: Vitals/I&O/Wt Last Vital Signs Temp 98.1 F 02/02/25 19:52 Pulse 98 02/03/25 08:57 Resp 19 H 02/03/25 08:00 BP 143/75 02/03/25 08:57 Pulse Ox 97 02/03/25 08:00 O2 Del Method Room Air 02/03/25 08:00 02/02/25 02/03/25 02/03/25 22:59 06:59 14:59 Intake Total 0 / 0 95.55 / 95.55 Balance 0 / 0 95.55 / 95.55 Weight last 48 hrs Weight 105 lb 3.2 oz Physical Exam 2 Narrative: General: In no acute distress Neck: No jugular venous distention or carotid bruits Heart: Normal S1 and S2 with a regular rate and rhythm, no cardiac murmurs Lungs: Normal respiratory effort with no use of intercostal muscles, clear lungs sounds to auscultation Extremities: No lower extremity edema Neuro: Alert and oriented x 3 Data 02/03/25 06:46 02/03/25 06:46 Other Labs: Triglycerides 825 LDL 165 HDL 29 troponin trend 143-239-209 magnesium 1.6 EKG personally interpreted by me, performed 02/02/2025?normal sinus rhythm with minor ST depressions very small Q waves in inferior leads. A&P Assessment and plan 1. Acute non-ST elevation myocardial infarction (NSTEMI): 2. Smoker: 3. Hypertriglyceridemia: 4. History of diabetes mellitus, type II: Plan: -currently pain free -patient high risk for CAD based on h/o smoking, DM and severe hypertriglyceridemia - nitro paste 1/2 inch [id number] -asa 81mg daily - clopidogrel 600mg x1 then 75mg daily -start atorvastatin 80mg qhs -iv heparin -echo today - C today - will discuss with cathing physician Dr. Wilcox PDMP PDMP Reviewed: Not Reviewed Coding Level of Care Code 12902 Diagnoses Acute non-ST elevation myocardial infarction (NSTEMI) I21.4 Smoker F17.200 Hypertriglyceridemia E78.1 History of diabetes mellitus, type II Z86.39
[2025-02-03 12:09] LABS: Partial Thromboplastin Time 65.8 SECONDS (23.9-36.7)
--- NOTE | 2025-02-03 12:48 | PC.NURSE ---
PTT came back at 65.8. Per protocol no change to infusion rate. Nurse verified with charge nurse.
--- NOTE | 2025-02-03 12:51 | XACV_ITS ---
Exam Room: [facility] Ht: 152 cm Wt: 48 kg BSA: 1.42 m2 Gender: Female : 1970 Any Known Allergies: No known allergies Exam Priority: Routine Procedure(s): Procedure Description: Diagnostic procedure Procedure Description: Left Heart Catheterization Procedure Description: Left ventriculography Procedure Description: Miscellaneous Procedure Description: ACT Procedure Description: Coronary Angiography Brenden ZHENG; Diagnostic Cath Status: Urgent Diagnostic Findings * Left Main has no disease. * Proximal Left Anterior Descending: obstructive 70% stenosis, HECTOR: 3 flow. * Mid Left Anterior Descending: significant 80% stenosis, HECTOR: 3 flow. * Distal Left Anterior Descending: moderate 50% stenosis, HECTOR: 3 flow. * Proximal Right Coronary Artery: mild 40% stenosis, HECTOR: 3 flow. * Distal Right Coronary Artery: severe 90% stenosis, HECTOR: 3 flow. * Distal Circumflex: total occlusion, HECTOR: 0 flow. * 1st Diagonal: severe 90% stenosis, HECTOR: 3 flow. * Second Obtuse Marginal Branch Segment: moderate 50% stenosis, HECTOR: 3 flow. * Coronary angiography shows right dominance. Conclusions 1. There is total occlusion coronary artery disease with three vessel disease. 2. The posterior, inferobasal, mid inferior jacques are hypokinetic. 3. Normal left ventricular systolic function. Ejection fraction of 50%. Recommendations * 1-Return to ICU for close monitoring and routine PCI care 2-Continue IV heparin drip as per ACS protocol 3-Hold Plavix for possible CABG 4-Statin with LDL goal of 70 mg/dl, aspirin 81 mg p.o. daily for life long 5-CT surgery consults for CABG 6-Optimal medical management for [place] 7-Follow up with Dr. Wilcox in four weeks and establish care with primary care physician. Diagnostic RX Recommendation: CABG LV EDP: 13 mmHg Ventriculography Ejection Fraction: 50.0 % Pressures Phase:Rest AO : 177 / 91 ( 128 ) @ 4:21:00 PM 178 / 92 ( 128 ) @ 4:21:00 PM 136 / 102 ( 119 ) @ 4:23:00 PM 167 / 81 ( 117 ) @ 4:33:00 PM 170 / 78 ( 117 ) @ 4:33:00 PM LV : 181 / -14 / 20 @ 4:21:00 PM 181 / -14 / 19 @ 4:21:00 PM 168 / -9 / 13 @ 4:32:00 PM 162 / -8 / 25 @ 4:33:00 PM 164 / -8 / 18 @ 4:33:00 PM Valves Phase:DefaultPhase AV : 0.0 @ 3:38:34 PM AV Mean Gradient: 0.0 @ 3:38:34 PM Clinical Evaluation EBL: 5mL-10mL Procedural Details Procedure Consent Obtained. Pre-Procedure Time Out. Identified patient by full name and date of as verbalized by the patient/guarantor. Does the consent match the physician's order: Yes. Accurate & Complete Informed Consent: Yes. Inpatient/Outpatient History & Physical on Chart: Yes. If H&P is completed, is and addenduem needed: No. Visualize and Verify Site with Patient/Guarantor: N/A. Relevant Radiology Images available: Yes. The risks, benefits, and alternatives of sedation and/or procedure were discussed by physician. The patient agrees to continue. Procedure started. [facility] Clinical Fraility Score: 3: Managing Well. Utility Technician Indications: ACS > 24 hours/NSTEMI. Chest Pain Symptom Assessment: Typical Angina Symptoms. Cardiovascular Instability: No. Correct patient, site and procedure confirmed by cath team. Current diagnosis: NSTEMI. PERRLA. Strong, equal hand copper flotation operator bilaterally. Lungs clear x 5 lobes. IV Site on Arrival: 20 gauge in the left forearm. IV Fluids: 0.9% NaCl at KVO. 300 mL infused prior to cytogenetics laboratory manager. Pre Procedural Pulses: bilateral dorsalis pedis was 3+. Pre Procedural Pulses: bilateral posterior tibial was 3+. Pre Procedural Pulses: bilateral radial was 2+. Oxygen started at 2liters/min via nasal canula. right groin was prepped with chloroprep then draped in the usual sterile fashion. right radial was prepped with chloroprep then draped in the usual sterile fashion. Physician notified. Patient's family in the cytogenetics laboratory manager waiting room. Dr. Wilcox will update at the completion of the procedure. Equipment: 6F - Radial. Cardiac Cath Pack. ACBuzzVote Manifold Kit Model BT 2000. Heparinized Saline (2 units/mL), 1000 mL bag. Baseline sample Acquired. HR: 102 BPM. Physician arrived. IV Site on Arrival: 20 gauge in the right anticubital. Physician scrubbed in. Immediate Pre-Procedure Time Out. Correct Patient: Yes; Correct Procedure: Yes; Correct Site: Yes; Correct Patient Position: Yes; Correct Supplies: Yes; Dried Flammable Prep: Yes; Blood Products Available: No. Lidocaine 1% infiltrated to the right radial. Arterial access obtained. A 5 uzbek TIG catheter in over the exchange J wire. EDP Sample taken: LV 181/-15,20; HR: 111 BPM; SpO2: 100%. Pullback taken: LV 181/-15,19; AO 177/91(128); Mean: 0mmHg, Peak to Peak: 0mmHg, SEP: 26sec/min; HR: 111 BPM; SpO2: 100%. Multiple views taken of left coronary artery. ACT drawn. Results 158 seconds. Therapeutic limits - pre-heparin administration 90-150 seconds and monitoring heparin during a vascular procedure >250 seconds. Catheter redirected to the RCA. Multiple views taken of right coronary artery. Catheter removed over the exchange J wire. A 5 uzbek Angled Pig catheter in over the exchange J wire. EDP Sample taken: LV 168/-10,13; HR: 113 BPM; SpO2: 100%. LV gram performed in GUTIERREZ @ 10 mL/second for a total of 30 mL. EDP Sample taken: LV 162/-9,25; HR: 112 BPM; SpO2: 100%. Pullback taken: LV 164/-9,18; AO 167/81(117); Mean: 0mmHg, Peak to Peak: 0mmHg, SEP: 10sec/min; HR: 114 BPM; SpO2: 100%. Catheter removed over the exchange J wire. Dr. Wilcox scrubbed out. A TR Band was successful obtaining hemostatsis at the Right Radial artery insertion site. Vital chart was stopped. Post Procedure: Pulses reassessed and unchanged. PERRLA. Strong, equal hand copper flotation operator bilaterally. No VTE prophylaxis required. Medication's Wasted: Lidocaine 1% = 18 mL. Medication's Wasted: Nitro = 49.8 mg. Medication's Wasted: Heparin = 1000 units. Medication's Wasted: Other = Fentanyl 50mcg. Total IV fluids: 40 mL. Post-op diagnosis: Multivessel CAD, CABG referral. Complications: none. Estimated blood loss: 5mL-10mL. Responsiveness - Normal response to verbal stimuli; alert and oriented, PERRLA. Airway - Unaffected, no intervention required; spontaneous ventilation. Circulation: W/N/L, pulses unchanged. Nausea/Vomiting: No. Procedure completed. Patient transferred by wheelchair to 1st floor. Access Site Site: Right Radial artery Sheath Size: 6 Fr Hemostasis Method: TR Band Hemostasis Success: Successful Procedure Medications Start: 3:02 PM Stop: 3:02 PM Medication: Versed Amount: 1 mg Route: I.V. Start: 3:02 PM Stop: 3:02 PM Medication: Fentanyl Amount: 25 mcg Route: I.V. Start: 3:15 PM Stop: 3:15 PM Medication: Fentanyl Amount: 25 mcg Route: I.V. Start: 3:19 PM Stop: 3:19 PM Medication: Nitrogylcerin Amount: 200 mcg Route: I.A. Start: 3:19 PM Stop: 3:19 PM Medication: Versed Amount: 1 mg Route: I.V. Start: 3:26 PM Stop: 3: PM Medication: Heparin Amount: 5000 units Route: I.V. I, the attending physician, have reviewed and verified all procedure medications. Yes, all medications given per verbal order History/Risk Factors Hypertension: No Dyslipidemia: No Peripheral Arterial Disease (PAD): No Myocardial Infarction ([place]): No Obesity: No Renal Disease: No Tobacco Use: Current/Recent(w/in 1 year) Prior Interventions PCI: No CABG: No Valve Surgery: No Report Signatures Finalized by Navid Wilcox MD on 02/03/2025 07:43 PM
--- NOTE | 2025-02-03 15:09 | W.PM.OPSUD ---
Surgery/Procedure H&P Update DATE OF PROCEDURE: February 03, 2025 DATE H&P PERFORMED: 02/02/25 H&P UPDATE INFORMATION: I have reviewed H&P completed within last 30 days, I have examined patient prior to procedure and No changes to prior documentation CHANGES TO PREVIOUS DOCUMENTATION: [id number] OK PREOP DIAGNOSIS: [id number] OK PRIMARY INDICATION FOR PROCEDURE: Proceed with left heart cath/PCI if indicated PLANNED PROCEDURE: Left heart cath/PCI if indicated PATIENT REASSESSED PRIOR TO SEDATION, WITH NO CHANGE NOTED: Yes PHYSICAL EXAM: alert, oriented x 3, clear to auscultation bilaterally, regular rate & rhythm and operative site marked AIRWAY EVAL/ANESTHESIA PLAN: ASA II, Risks, benefits & alternatives of sedation and/or procedure discussed and Patient agrees to continue as planned ADDITIONAL INFORMATION: Patient has been explained all risk-benefit and alternative for the procedure. Patient understand 2% risk of stroke major bleed, patient understand 5% risk of minor bleeding oozing infection hematoma contrast-induced nephropathy urgent emergent vascular bypass surgery. Patient and her fully understood and would like to proceed with it.
--- NOTE | 2025-02-03 15:37 | P.PN_ITS ---
Subjective 2 Subjective: Patient was seen in the morning and did not complain of any chest pain. On heparin infusion Patient for cath today and to follow the front of house manager recommendation Of note the patient further explained that she is diabetic but she could not take her insulin due to her insurance issues that she recently lost, after losing her job Vitals/I&O/Wt Last Vital Signs Temp 98.1 F 02/02/25 19:52 Pulse 99 02/03/25 14:43 Resp 16 02/03/25 12:02 BP 132/80 02/03/25 14:43 Pulse Ox 99 02/03/25 14:43 O2 Del Method Room Air 02/03/25 12:02 02/03/25 02/03/25 02/03/25 06:59 14:59 22:59 Intake Total 95.55 / 95.55 607.5 / 607.5 Balance 95.55 / 95.55 607.5 / 607.5 Weight last 48 hrs Weight 47.718 kg Physical Exam 2 Narrative: General: Alert and oriented, lying comfortably without any distress HEENT: Normocephalic, atraumatic, grossly unremarkable exam Cardio: normal rate rhythm, normal S1-S2 without any murmurs, rubs, or gallops and JVD normal Respiratory: normal vascular breathing on auscultation without any wheezes, stridor, rhonchi GI: Abdomen soft, nontender, nondistended, normoactive bowel sounds present all 4 quadrants, Neuro: intact cranial nerves motor and sensory and cerebellar/coordination function without any focal neurological deficit Behavior: Appropriate and cooperative Extremities: Adequate palpable pulses, no edema or cyanosis observed Skin: grossly unremarkable exam Data 02/03/25 06:46 02/03/25 06:46 A&P Assessment and plan 1. Acute non-ST elevation myocardial infarction (NSTEMI): Patient came with chest pain found to have increased troponins, cardiology consulted and started on heparin infusion, loaded with high-dose aspirin and clopidogrel at the time of admission Patient post cath shows severe LAD disease and recommended CABG Currently to hold Plavix and to continue heparin once complete bedrest after 3 hours and later on to continue aspirin statins and beta-vito 2. Hypertriglyceridemia: High-dose statins to continue along with ezetimibe 3. History of diabetes mellitus, type II: Patient could not take her insulin due to her insurance issues HbA1c more than 11% Insulin glargine 5 units along with sliding scale to continue 4. Nicotine dependence: Emphasis on smoking cessation has been provided Nicotine patch PDMP PDMP Reviewed: Not Reviewed Attestations 2 Medical Necessity Statement*: Patient will stay more than 2 midnights for further optimization of her severe chronic artery disease with cardiology on board for further proceeding after discussion with the patient for CABG versus stenting? Time Spent in Patient Care: 16 - 35 minutes (>than 50% of time sp ent in counselling and/or direct pt care on unit) . Other Attestations: Patient condition has been discussed at length with the patient/family, I have independently reviewed the chart labs imaging/diagnostics/EKG. the goals of care and code status with the patient/family/NOK/legal paper sales representative, and documented accordingly. The management has been done according to the current clinical condition with respect to patient goals of care and based on recommendations/guidelines. The patient/family has been informed about the current condition and further plan of care. Agreed with the plan of care and understood without any language barrier. Every effort was made to ensure accuracy of electronic equipment set up operator. Any obvious errors or omissions should be clarified with the author of the document. Coding Level of Care Code 20689 Diagnoses Acute non-ST elevation myocardial infarction (NSTEMI) I21.4 Hypertriglyceridemia E78.1 History of diabetes mellitus, type II Z86.39 Nicotine dependence F17.200
--- NOTE | 2025-02-03 15:54 | PM.PROC ---
Procedure Note: Date of procedure: 02/03/25 Pre-procedure diagnosis: NSTEMI Post-procedure diagnosis: same Procedure: Left heart cath was performed Left main: No significant disease LAD has proximal 40% eccentric stenosis, mid LAD has eccentric 70 to 80% stenosis, distal 30 to 40% stenosis Left circumflex and 100% occluded in the midsegment, 2 obtuse marginals are small caliber diffusely diseased vessel with 80-90 mid stenosis RCA is a dominant vessel with mid and distal 90% stenosis, there is a proximal 40% stenosis LV gram performed: Normal ejection fraction 55%, mid to distal inferior wall hypokinesis LVEDP 13 mmHg Plan: Recommended CABG Hold Plavix Continue heparin once complete bedrest after 3 hours Optimize medical management in the form of aspirin and statin beta-vito Full note to be dictated Coding Level of Care Code Acute Code for Troy Elias
[2025-02-03] MEDS: magnesium sulfate premix 2 GM/50 ML PIGGYBACK IV (17:15)
[2025-02-03] MEDS: morphine 4 mg/mL SDV 1 mL 2 MG IVP ×2 (17:47→23:00)
[2025-02-03] MEDS: nitroglycerin drip 50 MG/250 ML PREMIX IV (17:48)
[2025-02-03] MEDS: insulin glargine 100 units/1 mL 5 UNIT SUBCUT (23:00)
--- NOTE | 2025-02-03 23:59 | USCV_ITS ---
Melony Hermosillo Age: 54 Gender: F : 1970 Exam Date: 02/03/2025 12:45 Ordering Phys: Odilia Morton MD Technologist: Prabhu Mcnally Exam Location: [facility] [place] Indication: nstemi chest pain BP: 144 / 82 HR: 96 Rhythm: Sinus Technical Quality: Adequate MEASUREMENTS (Male / Female) Normal Values 2D ECHO LV Diastolic Diameter PLAX 4.0 cm 4.2 - 5.9 / 3.9 - 5.3 cm IVS Diastolic Thickness 0.7 cm 0.6 - 1.0 / 0.6 - 0.9 cm IVS Systolic Thickness 1.1 cm LVPW Diastolic Thickness 0.7 cm 0.6 - 1.0 / 0.6 - 0.9 cm LVPW Systolic Thickness 0.8 cm LVOT Diameter 2.1 cm LV Ejection Fraction 2D Teich 47.9 % LV Ejection Fraction MOD 4C 49.7 % LV Ejection Fraction MOD 2C 51.8 % LV Ejection Fraction 2C AL 52.3 % LA Diameter 3.1 cm RA Systolic Volume 4C AL 20.6 ml RA Systolic Volume 4C MOD 20.9 ml LA Sys Volume AL 21.5 cm cubed LA Sys Volume Index AL 15.1 cm cubed/m squared Aorta at Sinotubular Diameter 2.0 cm IVC Diameter 1.1 cm M-MODE LA Ao Ratio MM 1.3 AV Cusp Separation MM 1.5 cm DOPPLER AV Peak Velocity 116.0 cm/s LVOT Peak Velocity 70.0 cm/s AV Area Cont Eq vti 1.8 cm squared AV Area Cont Eq pk 2.0 cm squared MV Peak Velocity 106.0 cm/s MV Area PHT 7.6 cm squared Mitral E to A Ratio 0.8 TR Peak Velocity 340.0 cm/s TR Peak Gradient 46.2 mmHg TR Mean Velocity 277.0 cm/s TR Mean Gradient 31.9 mmHg TR Velocity Time Integral 80.2 cm PV Peak Velocity 79.7 cm/s RV Ejection Time 0.3 s FINDINGS Left Ventricle Normal left ventricular size. There is severe hypokinesis of the mid to basal inferior wall segments, hypokinesis of the mid inferolateral wall segment, akinesis of the basal inferolateral wall segment, and mild hypokinesis of the rest of the myocardial segments. Left ventricular ejection fraction is 47%. Normal left ventricular diastolic function. Normal left ventricular wall thickness. Right Ventricle Normal right ventricular size and systolic function. Right Atrium Normal right atrial size. Left Atrium Normal left atrial size. IA Septum Normal appearance of the interatrial septum. Mitral Valve There is moderate mitral valve regurgitation. No mitral valve prolapse or calcification. No mitral valve stenosis Aortic Valve Aortic valve is not well-visualized. There is mild aortic valve calcification. There is no aortic valve stenosis or regurgitation. Tricuspid Valve Trace tricuspid valve regurgitation. Mild pulmonary hypertension with a PASP of 49 mmHg. Pulmonic Valve Normal pulmonic valve structure. No pulmonic valve stenosis or regurgitation. Pericardium There is a small pericardial effusion along with the right atrium and the right ventricle with no evidence of tamponade. Aorta Normal diameter of the aortic root and ascending thoracic aorta. IVC Normal IVC diameter. CONCLUSIONS Mildly reduced left ventricular systolic function with segmental wall motion abnormalities consistent with coronary artery disease. Left ventricular ejection fraction 47%. Normal right ventricular size and systolic function. There is moderate mitral valve regurgitation. No mitral valve prolapse or calcification. No mitral valve stenosis Mild pulmonary hypertension with a PASP of 49 mmHg. Jose Manuel Garvey MD, FACC (Electronically Signed) Final Date: 03 February 2025 18:48 S
[2025-02-04] VITALS (63 sets, daily range): BP systolic 93–171; BP diastolic 48–99; PULSE 90–127; RESP 10–31; TEMP 36.7–36.8; O2SAT 93–100
[2025-02-04] MEDS: heparin drip 25,000 UNIT/500 ML PREMIX 13 UNIT IV (01:30)
[2025-02-04 07:50] LABS: Hematocrit 36.7 % (36-47); Hemoglobin 13.10 g/dL (11.27-16.99); Mean Corpuscular HGB Conc 35.7 g/dL (30-55); Mean Corpuscular Hemoglobin 30.3 pg (27-33); Mean Corpuscular Volume 85.0 fl (85-98); Nucleated Red Blood Cells % 0 %; Platelet Count 193 10^3/cmm (157-399); Red Blood Count 4.32 10^6/uL (3.85-5.65); White Blood Count 12.35 10^3/uL (3.29-11.43)
[2025-02-04 08:10] LABS: Alanine Aminotransferase 37 U/L (0-33); Albumin Level 3.9 g/dL (3.5-5.2); Alkaline Phosphatase 113 U/L (35-105); Anion Gap 14.6 (5-19); Aspartate Amino Transferase 36 U/L (0-32); Blood Urea Nitrogen 5 mg/dL (6-20); Calcium 9.0 mg/dL (8.5-10.5); Carbon Dioxide 24 mmol/L (22-29); Chloride 100 mmol/L (98-107); Creatinine Clr Calc Pharmacy 120.3833; Globulin 2.8 g/dL (1.3-4.6); Glucose 290 mg/dL (65-115); Magnesium 1.8 mg/dL (1.7-2.3); Osmolality Calculated 288 mOsm/kg (285-295); Potassium 3.6 mmol/L (3.5-5.1); Sodium 135 mmol/L (136-145); Total Protein 6.7 g/dL (6.6-8.7)
[2025-02-04 08:31] LABS: Partial Thromboplastin Time 71.5 SECONDS (23.9-36.7)
[2025-02-04] MEDS: morphine 4 mg/mL SDV 1 mL 2 MG IVP ×3 (09:42→20:21)
--- NOTE | 2025-02-04 11:09 | PC.NURSE ---
nurse with Dr Wilcox at patient's bedside when patient and decided they did want her to be transferred and they wish to be sent to [facility] in [place]. Dr Wilcox tells nurse she is accepted, all imaging to be sent, we are just waiting on a bed.
--- NOTE | 2025-02-04 12:51 | P.PN_ITS ---
Subjective 2 Subjective: No more chest pain on heparin and nitro drip Patient and family decided in favor of CABG I have spoken to Dr. Andry Arreola, CT surgeon at [facility] who has accepted her transfer. Awaiting for bed Vitals/I&O/Wt Last Vital Signs Temp 98.2 F 02/04/25 11:38 Pulse 97 02/04/25 11:38 Resp 17 02/04/25 11:38 BP 125/75 02/04/25 11:38 Pulse Ox 98 02/04/25 11:38 O2 Del Method Room Air 02/04/25 11:38 02/03/25 02/04/25 02/04/25 22:59 05:59 14:59 Intake Total 676.852 / 5436.281 1565.55 / 2418.902 585.95 / 585.95 Balance 676.852 / 7429.646 7564.55 / 2418.902 585.95 / 585.95 Weight last 48 hrs Weight 105 lb Weight 105 lb Weight 105 lb 3.2 oz Physical Exam 2 Const: COMMON NORMALS: alert HENMT: OTHER: GENERAL: Patient is alert, awake and oriented x3. HEART: Regular S1 and S2. No murmur, rub or gallop. LUNGS: Clear to auscultate bilaterally. CENTRAL NERVOUS SYSTEM: Grossly nonfocal. EXTREMITIES: Lower extremities with out edema bilaterally. Resp: COMMON NORMALS: clear to auscultation bilaterally AUSCULTATION: clear to auscultation bilaterally Neuro: SENSORIUM/ORIENTATION: Yes alert Data 02/04/25 07:14 02/04/25 07:14 A&P Assessment and plan 1. Acute non-ST elevation myocardial infarction (NSTEMI): 2. Smoker: 3. Hypertriglyceridemia: 4. History of diabetes mellitus, type II: Plan: Currently chest pain-free Continue heparin and nitro drip Add low-dose beta-vito metoprolol succinate 12.5 mg p.o. daily Continue aspirin statin May can titrate off nitro drip if has chest pain can put Nitropaste 1 inch Please do Correctional Counselor/Case Manager film cloud share with [facility] Please print out my Correctional Counselor/Case Manager report, echo report and progress not for record sent. Awaiting transfer pending bed situation at [facility] PDMP PDMP Reviewed: Not Reviewed Attestations 2 Medical Necessity Statement*: Patient require continuation hospitalization for above defined care Coding Level of Care Code Acute Code for Chg Fwd Diagnoses Acute non-ST elevation myocardial infarction (NSTEMI) I21.4 Smoker F17.200 Hypertriglyceridemia E78.1 History of diabetes mellitus, type II Z86.39
--- NOTE | 2025-02-04 13:03 | P.TS_ITS ---
Transfer Summary Providers Date of Admission: 02/02/25 22:30 Date of Discharge/Transfer: 02/04/25 Attending Provider at Admission: Odilia Morton MD Attending Provider at Transfer: Perla De La Vega MD Primary Care Provider: Leroy Chamorro NP Transfer Plans: Anticipated date of transfer: 02/04/25 . Diagnoses at Discharge Discharge Diagnosis 1. Acute non-ST elevation myocardial infarction (NSTEMI): 2. Smoker: 3. Hypertriglyceridemia: 4. History of diabetes mellitus, type II: Reason for Visit Reason for Visit Chest Pain Brief History: Melony Hermosillo is a 54 year old female with medical history significant for nicotine addiction, hyperlipidemia, hypertriglyceridemia, history of diabetes type 2 who presented to the emergency room after 3 weeks of ongoing chest pain that radiates to the neck to the back and axilla. Patient claimed that the chest pain is burning stabbing sharp pain in quality. And patient also related that the chest pain is movement related whenever she takes a deep breath it hurts whenever she vacuums it hurts so bad into the left arm and into the back. Hospital Course Hospital Course On arrival to the emergency room chest pain protocol initiated and initial troponin was 143 with no delta second troponin was further elevated to 209 with a delta of 66.2. The third troponin is pending. By criteria this is a non- STEMI. EKG showed Sinus rhythm intervals are within normal range without ST-T wave abnormality. Patient got relief of chest pain with nitro. Cardiology consulted by the ER physician and started on heparin drip right after the first troponin . Patient also had received full aspirin, loaded Plavix at 600 on heparin drip started. Patient also received statin atorvastatin 80mg. CTA of the chest did not show any dissection or PE. Patient has been admitted to stepdown unit for chest pain rule out CAD. S/p cath the patient was found to have severe LAD disease and recommendation for CABG was made by the painting trades worker. patient kept on heparin and nitro infusion. continued on aspirin, plavix, statins, fenofibrates, and BB dose adjusted as per the HR and BP. patient did not have any insurance and further decision for CABG vs stenting was considered until today when patient decided for CABG. Care Program Resident consulted with the [facility] Dr Andry Arreola accepted the patient for CABG. Patient condition has been discussed at length with the patient/family, I have independently reviewed the chart labs imaging/diagnostics/EKG. the goals of care and code status with the patient/family/NOK/legal in home sales representative, and documented accordingly. The management has been done according to the current clinical condition with respect to patient goals of care and based on recommendations/guidelines. The patient/family has been informed about the current condition and further p jane of care. Agreed with the plan of care and understood without any language barrier. Every effort was made to ensure accuracy of physical meteorologist. Any obvious errors or omissions should be clarified with the author of the document. Physical Exam Narrative: General: Alert and oriented, lying comfortably without any distress HEENT: Normocephalic, atraumatic, grossly unremarkable exam Cardio: normal rate rhythm, normal S1-S2 without any murmurs, rubs, or gallops and JVD normal Respiratory: normal vascular breathing on auscultation without any wheezes, stridor, rhonchi GI: Abdomen soft, nontender, nondistended, normoactive bowel sounds present all 4 quadrants, Neuro: intact cranial nerves motor and sensory and cerebellar/coordination function without any focal neurological deficit Behavior: Appropriate and cooperative Extremities: Adequate palpable pulses, no edema or cyanosis observed Skin: grossly unremarkable exam TS Data Studies Completed and Pending Pending at discharge Category Date Time Status CBC Auto Diff [Complete Blood Count w/Auto] AM LABS Lab 02/05/25 04:00 Ordered CMP [Comprehensive Metabolic Panel] AM LABS Lab 02/05/25 04:00 Ordered Magnesium AM LABS Lab 02/05/25 04:00 Ordered PTT [Partial Thromboplastin Time] Timed Lab 02/04/25 13:30 Ordered Platelet Count Q2D Lab 02/06/25 04:00 Ordered Completed Studies During Hospitalization Category Date Time Status CTA chest [CT angio chest PE protcl [id number]] Stat Cat Scan 02/02/25 21:28 Completed HOSPITAL PERSONNEL DIRECTOR request for service Routine Exams 02/03/25 12:51 Completed XR chest 1V portable [id number] Stat Exams 02/02/25 20:05 Completed CV. echo complete* [id number] Stat Ultrasound 02/03/25 23:59 Completed Laboratory Last Values WBC 12.35 10^3/uL (3.29-11.43) H 02/04/25 07:14 RBC 4.32 10^6/uL (3.85-5.65) 02/04/25 07:14 Hgb 13.10 g/dL (11.27-16.99) 02/04/25 07:14 Hct 36.7 % (36-47) 02/04/25 07:14 MCV 85.0 fl (85-98) 02/04/25 07:14 MCH 30.3 pg (27-33) 02/04/25 07:14 MCHC 35.7 g/dL (30-55) 02/04/25 07:14 RDW 11.7 % (12.1-15.1) L 02/04/25 07:14 Plt Count 193 10^3/cmm (157-399) 02/04/25 07:14 MPV 10.8 fL (7.4-10.4) H 02/04/25 07:14 Neut % (Auto) 64.9 % 02/04/25 07:14 Lymph % (Auto) 26.5 % 02/04/25 07:14 Sibley % (Auto) 6.1 % 02/04/25 07:14 Eos % (Auto) 1.5 % 02/04/25 07:14 Baso % (Auto) 0.3 % 02/04/25 07:14 Neut # (Auto) 8.01 10^3/uL (1.8-7.7) H 02/04/25 07:14 Lymph # (Auto) 3.3 10^3/uL (0.8-4.8) 02/04/25 07:14 Sibley # (Auto) 0.8 10^3/uL (0.2-0.9) 02/04/25 07:14 Eos # (Auto) 0.2 10^3/uL (0.0-0.8) 02/04/25 07:14 Baso # (Auto) 0.0 10^3/uL (0.0-0.1) 02/04/25 07:14 Nucleated RBC % (auto) 0 % 02/04/25 07:14 Nucleated RBCs # 0.0 /100WBC 02/04/25 07:14 APTT 71.5 SECONDS (23.9-36.7) H 02/04/25 07:14 Sodium 135 mmol/L (136-145) L 02/04/25 07:14 Potassium 3.6 mmol/L (3.5-5.1) 02/04/25 07:14 Chloride 100 mmol/L (98-107) 02/04/25 07:14 Carbon Dioxide 24 mmol/L (22-29) 02/04/25 07:14 Anion Gap 14.6 (5-19) 02/04/25 07:14 BUN 5 mg/dL (6-20) L 02/04/25 07:14 Creatinine 0.4 mg/dL (0.5-0.9) L 02/04/25 07:14 GFR Calculation 167.6 mL/min (90-130) H 02/04/25 07:14 Glucose 290 mg/dL (65-115) H 02/04/25 07:14 POC Glucose 336 mg/dL (70-110) H 02/04/25 11:38 Estimat Average Glucose 292 02/03/25 06:46 Hemoglobin A1c 11.8 % (4.0-6.0) H 02/03/25 06:46 Calculated Osmolality 288 mOsm/kg (285-295) 02/04/25 07:14 Calcium 9.0 mg/dL (8.5-10.5) 02/04/25 07:14 Phosphorus 3.6 mg/dL (2.5-4.5) 02/03/25 06:46 Magnesium 1.8 mg/dL (1.7-2.3) 02/04/25 07:14 Total Bilirubin 0.6 mg/dL (0.15-1.2) 02/04/25 07:14 AST 36 U/L (0-32) H 02/04/25 07:14 ALT 37 U/L (0-33) H 02/04/25 07:14 Alkaline Phosphatase 113 U/L (35-105) H 02/04/25 07:14 Troponin T Baseline 143 ng/L (0-10) H* 02/02/25 20:11 Troponin T 120 Minute 209.2 ng/L (0-10) H 02/02/25 21:44 Delta Troponin T 66.2 ABS# (0-10) H* 02/02/25 21:44 Troponin T Hi Sens 6Hr 222.0 ng/L (0-10) H 02/03/25 02:11 Troponin T Hi Sens 6Hr Delta 79.0 ng/L (0-12) H* 02/03/25 02:11 NT-Pro-B Natriuret Pep 821 pg/mL (0-125) H 02/02/25 20:11 Total Protein 6.7 g/dL (6.6-8.7) 02/04/25 07:14 Albumin 3.9 g/dL (3.5-5.2) 02/04/25 07:14 Globulin 2.8 g/dL (1.3-4.6) 02/04/25 07:14 Triglycerides 825 mg/dL (0-150) H 02/03/25 06:46 Cholesterol 273 mg/dL (0-200) H 02/03/25 06:46 LDL Cholesterol Direct 163 mg/dL (0-100) H 02/03/25 06:46 LDL Cholesterol, Calc Not Reportable 02/03/25 06:46 Total VLDL Cholesterol 165 mg/dL (0-30) H 02/03/25 06:46 HDL Cholesterol 29 mg/dL (60-100) L 02/03/25 06:46 Cholesterol/HDL Ratio 9.41 mg/dL (0.0-4.40) H 02/03/25 06:46 Lipase 36 U/L (13-60) 02/02/25 20:11 TSH 1.86 uIU/mL (0.27-4.20) 02/03/25 06:46 Radiology Impressions Chest X-Ray 02/02/25 20:05 IMPRESSION: No acute cardiopulmonary abnormality. Chest CTA 02/02/25 21:28 IMPRESSION: 1. No findings of acute pulmonary embolism. There is insufficient contrast in the thoracic aorta to exclude dissection, but there is no displaced calcium to provide indirect evidence of dissection. 2. Aortic valve leaflet calcifications are noted. There is mural thickening of the left ventricle. Correlate with any clinical findings of aortic stenosis. 3. Mild centrilobular emphysema. No acute airspace disease. COMMENTS: The presence of pulmonary emphysema on CT is an independent risk factor for lung cancer. In the absence of a history or active diagnosis of lung cancer, it is recommended that this patient with emphysema be evaluated for enrollment in a low dose CT lung cancer screening program. Recent Clincial Data Last Vital Signs Temp 98.2 F 02/04/25 11:38 Pulse 97 02/04/25 11:38 Resp 17 02/04/25 11:38 BP 125/75 02/04/25 11:38 Pulse Ox 98 02/04/25 11:38 O2 Del Method Room Air 02/04/25 11:38 Vital Signs Temp Pulse Resp BP Pulse Ox O2 Del Method 02/04/25 11:38 98.2 F 97 17 125/75 98 Room Air 02/04/25 09:42 18 95 02/04/25 07:36 98.0 F 98 21 H 124/72 98 Room Air 02/04/25 04:00 98.2 F 102 H 22 H 135/79 98 Room Air 02/04/25 03:45 103 H 21 H 134/80 97 02/04/25 03:30 101 H 19 H 132/85 96 02/04/25 03:15 103 H 20 H 116/55 95 02/04/25 03:00 111 H 21 H 157/94 02/04/25 02:45 108 H 20 H 171/97 94 02/04/25 02:30 106 H 21 H 163/96 93 02/04/25 02:15 102 H 21 H 163/96 96 02/04/25 02:12 103 H 17 136/72 98 02/04/25 01:45 FEEDER [employer]PER[employer] 102 H 20 H 145/88 95 02/04/25 01:30 [employer] 153/83 02/04/25 01:15 FEEDER OPER[employer] 101 H 22 H 145/83 97 Intake & Output/Weight 02/02/25 02/03/25 02/04/25 02/05/25 06:59 06:59 05:59 06:59 Intake Total 95.55 / 95.55 2418.902 / 2418.902 585.95 / 585.95 Balance 95.55 / 95.55 2418.902 / 2418.902 585.95 / 585.95 Weight 47.718 kg 47.627 kg Vitals Last Vital Signs Temp 98.2 F 02/04/25 11:38 Pulse 97 02/04/25 11:38 Resp 17 02/04/25 11:38 BP 125/75 02/04/25 11:38 Pulse Ox 98 02/04/25 11:38 O2 Del Method Room Air 02/04/25 11:38 TS Medications Medications Acetaminophen (Acetaminophen 325 Mg Tablet) 650 mg PO Q6H PRN PRN Reason: MILD PAIN Al Hydrox/Mg Hydrox/Simethicone (Ngqi-Fjm-Kgingsfga-Maria Esther 30 Ml Udc) 15 ml PO Q6H PRN PRN Reason: INDIGESTION Al Hydrox/Mg Hydrox/Simethicone (Uryt-Eqd-Gajeuopce-Maria Esther 30 Ml Udc) 30 ml PO Q15M PRN PRN Reason: INDIGESTION Alprazolam (Alprazolam 0.25 Mg Tablet) 0.25 mg PO TID PRN PRN Reason: ANXIETY Last Admin: 02/03/25 17:14 Dose: 0.25 mg Aspirin (Aspirin 81 Mg Ec Tablet) 81 mg PO DAILY [facility] Last Admin: 02/04/25 05:35 Dose: 81 mg Atorvastatin Calcium (Atorvastatin 40 Mg Tablet) 40 mg PO BEDTIME [facility] Last Admin: 02/03/25 22:59 Dose: 40 mg Atropine Sulfate (Atropine 1 Mg/Ml Sdv 1 Ml) 0.5 mg IVP PRN PRN PRN Reason: Symptomatic bradycardia Fenofibrate (Fenofibrate 145 Mg Tablet) 145 mg PO DAILY [facility] Last Admin: 02/04/25 05:35 Dose: 145 mg Fentanyl (Fentanyl 50 Mcg/Ml Inj 2ml) 50 mcg IVP PRN PRN PRN Reason: Prior to sheath removal Glucagon (Glucagon 1 Mg/Ml Kit 1 Ml) 1 mg IM ONCE PRN; Protocol PRN Reason: Adult Acute Hypoglycemia Nursing Prot. Heparin Sodium (Porcine) (Heparin 5,000 Unit/Ml Inj 1 Ml) 0 unit IVP PRN PRN; Protocol PRN Reason: Heparin Weight Based Protocol -Subsequent Bolus Heparin Sodium/Sodium Chloride (Heparin Drip) 25,000 unit in 500 mls @ 0 mls/hr IV CONT PRICILA; Protocol Last Titration: 02/04/25 08:39 Dose: 13.62 unit/kg/hr, 13 mls/hr Sodium Chloride (Sodium Chloride 0.9%) 1,000 mls @ 75 mls/hr IV .[id number] [facility] Last Infusion: 02/04/25 01:40 FEEDER OPER[employer] Dose: Infused Dextrose (D5w) 500 mls @ 0 mls/hr IV ONCE PRN; Protocol PRN Reason: Adult Acute Hypoglycemia Prot Dextrose (D10w) 125 mls @ 750 mls/hr IV PRN PRN; Protocol PRN Reason: Adult Acute Hypoglycemia Nursing Protocol Dextrose (D10w) 250 mls @ 1,000 mls/hr IV PRN PRN; Protocol PRN Reason: Adult Acute Hypoglycemia Nursing Protocol Nitroglycerin/Dextrose (Nitroglycerin Drip) 50 mg in 250 mls @ 0 mls/hr IV .Q0M [facility]; Protocol Last Titration: 02/04/25 01:30 CDT Dose: 20 mcg/min, 6 mls/hr Insulin Glargine (Insulin Glargine 100 Units/1 Ml) 5 unit SUBCUT BEDTIME [facility] Last Admin: 02/03/25 23:00 Dose: 5 unit Insulin Human Lispro (Insulin Lispro 100 Unit/1 Ml) 0 unit SUBCUT WM&BEDTIME [facility]; Protocol Last Admin: 02/04/25 09:45 Dose: 8 unit Magnesium Hydroxide (Magnesium Hydroxide 30 Ml Udc) 30 ml PO DAILY PRN PRN Reason: CONSTIPATION Metoprolol Tartrate (Metoprolol Tartrate 25 Mg Tablet) 25 mg PO BID@0900,2100 [facility] Last Admin: 02/04/25 09:46 Dose: 25 mg Morphine Sulfate (Morphine 4 Mg/Ml Sdv 1 Ml) 2 mg IVP Q4H PRN PRN Reason: SEVERE PAIN Last Admin: 02/04/25 09:42 Dose: 2 mg Naloxone HCl (Naloxone 0.4 Mg/Ml Sdv) 0.1 mg IVP Q2M PRN PRN Reason: OPIATERV Nicotine (Nicotine 21 Mg Patch) 1 patch TRANSDERMA DAILY [facility] Last Admin: 02/04/25 05:35 Dose: 1 patch Nitroglycerin (Nitroglycerin 0.4 Mg Sublingual Tablet) 0.4 mg SUBLINGUAL Q5M PRN PRN Reason: CHEST PAIN Ondansetron HCl (Ondansetron 2 Mg/Ml Sdv 2 Ml) 4 mg IVP Q8H PRN PRN Reason: vomiting, or N/V if npo Pantoprazole Sodium (Pantoprazole Dr 40 Mg Tablet) 40 mg PO DAILY [facility] Last Admin: 02/04/25 05:35 Dose: 40 mg Temazepam (Temazepam 15 Mg Capsule) 15 mg PO BEDTIME PRN PRN Reason: INSOMNIA Discontinued Medications Aspirin (Aspirin 81 Mg Chew Tablet) 324 mg PO NOW ONE Stop: 02/02/25 20:28 Last Admin: 02/02/25 20:57 Dose: 324 mg Atorvastatin Calcium (Atorvastatin 40 Mg Tablet) 80 mg PO ONCE ONE Stop: 02/02/25 21:10 Last Admin: 02/02/25 22:20 Dose: 80 mg Clopidogrel Bisulfate (Clopidogrel 300 Mg Tablet) 300 mg PO ONCE ONE Stop: 02/02/25 20:55 Last Admin: 02/03/25 00:03 Dose: Not Given Clopidogrel Bisulfate (Clopidogrel 300 Mg Tablet) 600 mg PO ONCE ONE Stop: 02/02/25 21:27 Last Admin: 02/02/25 22:20 Dose: 600 mg Fentanyl (Fentanyl 50 Mcg/Ml Inj 2ml) Confirm Administered Dose 100 mcg .ROUTE .STK-MED ONE Stop: 02/03/25 14:12 Heparin Sodium (Porcine) (Heparin 5,000 Unit/Ml Inj 1 Ml) 0 unit IVP ONCE ONE; Protocol Stop: 02/02/25 20:55 Last Increment: 02/02/25 22:17 Dose: 2,400 unit Incremental Dosing Total Given: 2,400 unit Heparin Sodium (Porcine) (Heparin 5,000 Unit/Ml Inj 1 Ml) Confirm Administered Dose 10,000 unit .ROUTE .STK-MED ONE Stop: 02/03/25 14:13 Lidocaine HCl (Xylocaine) Confirm Administered Dose 20 mls @ as directed .ROUTE .STK-MED ONE Stop: 02/03/25 14:13 Magnesium Sulfate (Magnesium Sulfate Premix) 2 gm in 50 mls @ 50 mls/hr IV ONCE ONE Stop: 02/03/25 17:55 Last Infusion: 02/03/25 18:25 Dose: Infused Iohexol (Iohexol 350 Mg/Ml 500 Ml Btl (Per Ml)) 0 ml IV ONCE ONE Stop: 02/02/25 21:48 Last Admin: 02/02/25 21:48 Dose: 56 ml Midazolam HCl (Midazolam 1 Mg/Ml Inj 2 Ml) Confirm Administered Dose 2 mg .ROUTE .STK-MED ONE Stop: 02/03/25 14:13 Nicotine (Nicotine 21 Mg Patch) 1 patch TRANSDERMA DAILY [facility] Nitroglycerin (Nitroglycerin 0.4 Mg Sublingual Tablet) 0.4 mg SUBLINGUAL ONCE ONE Stop: 02/02/25 20:28 Last Admin: 02/02/25 20:57 Dose: 0.4 mg Nitroglycerin (Nitroglycerin 1 Gm/Inch Oint Pkt) 0.5 inch TOPICAL Q6H [facility] Last Admin: 02/03/25 17:21 Dose: Not Given Nitroglycerin (Nitroglycerin 5 Mg/Ml Sdv 10 Ml) Confirm Administered Dose 50 mg .ROUTE .STK-MED ONE Stop: 02/03/25 14:12 Allergies No Known Allergies Allergy (Verified 02/02/25 20:00) Home Medications diclofenac sodium 3 % topical gel 1 applic topical BID PRN Pain 02/03/25 [History Confirmed 02/03/25] Discharge Plan Discharge Patient Disposition: Xfer Other Condition: Stable Prescriptions: No Action diclofenac sodium 3 % gel 1 applic TOPICAL BID PRN (Reason: Pain) Wood Buffer OK for DC: Cardiology Referrals: Leroy Chamorro NP [Primary Care Provider, Nurse Practitioner] Patient Instructions: Opioid Safety, Patient Portal & Ramy Instructions Transfer Attestations Time Spent in Transfer Care: greater than 30 min Specific Discharge Activities: educating patient, educating and/or supporting family/caregiver, discussing with pcp/other providers, discussing with case finishing machine adjuster/social workers/dc planners, documenting/other paperwork and evaluating patient/reviewing data Time Spent in Smoking Cessation: 3 to 10 minutes Status at Transfer: Cognitive status at transfer: cognitively intact ; Behavioral status at transfer: cooperative ; Functional status at transfer: independent ambulation ; Overall status at transfer: patient is progressing back to baseline Quality Metrics Clinical Quality Measures [ Acute Myocardial Infaction { Clinical Trial Participant: No; Contraindication to aspirin: None; Aspirin prescribed; Contraindication to statin: None; Statin prescribed; Contraindication to PCI: None; PCI performed;}] Coding Level of Care Code 05357 Diagnoses Acute non-ST elevation myocardial infarction (NSTEMI) I21.4 Smoker F17.200 Hypertriglyceridemia E78.1 History of diabetes mellitus, type II Z86.39
[2025-02-04 13:59] LABS: Partial Thromboplastin Time 74.7 SECONDS (23.9-36.7)
[2025-02-04 19:42] LABS: Partial Thromboplastin Time 82.3 SECONDS (23.9-36.7)
[2025-02-04] MEDS: insulin glargine 100 units/1 mL 7 UNIT SUBCUT (20:22)
[2025-02-05] VITALS (13 sets, daily range): BP systolic 81–133; BP diastolic 46–78; PULSE 75–92; RESP 3–20; TEMP 36.4–36.8; O2SAT 95–98
[2025-02-05 03:12] LABS: Hematocrit 38.0 % (36-47); Hemoglobin 13.40 g/dL (11.27-16.99); Mean Corpuscular HGB Conc 35.3 g/dL (30-55); Mean Corpuscular Hemoglobin 31.0 pg (27-33); Mean Corpuscular Volume 88.0 fl (85-98); Nucleated Red Blood Cells % 0 %; Platelet Count 239 10^3/cmm (157-399); Red Blood Count 4.32 10^6/uL (3.85-5.65); White Blood Count 13.75 10^3/uL (3.29-11.43)
[2025-02-05 03:36] LABS: Alanine Aminotransferase 27 U/L (0-33); Albumin Level 4.0 g/dL (3.5-5.2); Alkaline Phosphatase 116 U/L (35-105); Anion Gap 16.3 (5-19); Aspartate Amino Transferase 25 U/L (0-32); Blood Urea Nitrogen 8 mg/dL (6-20); Calcium 9.4 mg/dL (8.5-10.5); Carbon Dioxide 25 mmol/L (22-29); Chloride 100 mmol/L (98-107); Creatinine Clr Calc Pharmacy 96.3067; Globulin 2.7 g/dL (1.3-4.6); Glucose 215 mg/dL (65-115); Magnesium 1.7 mg/dL (1.7-2.3); Osmolality Calculated 291 mOsm/kg (285-295); Potassium 3.3 mmol/L (3.5-5.1); Sodium 138 mmol/L (136-145); Total Protein 6.7 g/dL (6.6-8.7)
[2025-02-05 03:50] LABS: Partial Thromboplastin Time 163.0 SECONDS (23.9-36.7)
[2025-02-05 04:54] LABS: Partial Thromboplastin Time 135.2 SECONDS (23.9-36.7)
[2025-02-05] MEDS: morphine 4 mg/mL SDV 1 mL 2 MG IVP ×2 (04:59→09:48)
--- NOTE | 2025-02-05 07:25 | PC.NURSE ---
Patient BP was low 84/46, nitro gtt was paused due to low BP.
--- NOTE | 2025-02-05 09:19 | PC.CHAP ---
Pastoral Care Encounter/Spiritual Assessment Type of Contact [] Declined occupancy specialist visit [] Patient/Family/Request visit [] Outpatient visit [] Follow-up visit [] Physician referral [] Code/Alert [x] Routine visit [] Staff referral [] Actively dying [] Patient sleeping [] Family support [] [] Out of room [] Palliative care [] [x] Receiving care in room [] Pre-surgical visit [] Trauma [] Long length of stay [] ICU visit [] Other: Relational/Emotional Strength [] Patient feels connected with others/family/visitors/staff [] Distress [] Loneliness/isolation [] Abandonment Spirituality of Patient [] Person of [place] [] Attends Rastafarian of their [place] [] Believes in Prayer [] Reads Bible or Yarsanism materials [] There are Spiritual issues to be addressed Sweep Press Operator Interventions [x] Prayer [] Active listening [] Non-anxious presence [] Spiritual/emotional support [] Crisis/trauma care [] Spiritual counseling [] Bereavement support [] Provided bereavement packet [] Provided Bible/devotional materials [] Provided toy/stuffed animal, coloring book to patient or family member [] Provided Communion [] Anointing/[place] [] Salvation [] Completed spiritual assessment [] Other: Impact on Illness or Injury [] Angry [] Fearful [] Anxious [] Often cries [] Exhaustion [] Unable to work [] Unable to attend judaism [] Unable to walk/stand [] Unable to read [] Unable to drive [] Unable to eat/drink [] Unable to sleep [] Unable to be with family [] Patient intubated [] Other: Summary Time spent with patient
--- NOTE | 2025-02-05 10:46 | P.PN_ITS ---
<Statement entered by Jose Manuel Garvey MD - 02/05/25 18:24> Patient was evaluated and cared for in conjunction with an advanced practice practitioner. I personally saw the patient and reviewed the chart and all pertinent data. I discussed the patient in detail with the advanced practice practitioner. Please see their note for complete assessment and agreed upon plan of care for the patient. Subjective 2 Subjective: Awaiting transfer to [facility] for CABG. Still having chest pain, same intensity as before cath, originating in the left shoulder and back, going toward the chest, rated 5-6/10. No shortness of breath, edema. Vitals/I&O/Wt Last Vital Signs Temp 98.2 F 02/05/25 07:19 Pulse 82 02/05/25 10:41 Resp 17 02/05/25 09:48 BP 103/55 02/05/25 10:41 Pulse Ox 95 02/05/25 09:48 O2 Del Method Room Air 02/05/25 07:19 02/04/25 02/05/25 02/05/25 22:59 06:59 14:59 Intake Total 859.417 / 1600.467 155.1 / 1600.467 480 / 480 Balance 859.417 / 1600.467 155.1 / 1600.467 480 / 480 Weight last 48 hrs Weight 103 lb 13.404 oz Weight 105 lb Weight 105 lb Physical Exam 2 Const: COMMON NORMALS: no acute distress and patient oriented x3 GENERAL APPEARANCE: cooperative and comfortable ORIENTATION/CONSCIOUSNESS: Yes awake, Yes oriented to person, Yes oriented to place and Yes oriented to time Chest: COMMONS NORMALS: normal inspection of the chest and normal palpation of entire chest wall CHEST: Yes Symmetrical chest wall rise Resp: COMMON NORMALS: normal respiratory effort, No retractions, No use of accessory muscles and clear to auscultation bilaterally EFFORT & INSPECTION: Yes symmetric chest movement AUSCULTATION: clear to auscultation bilaterally Cardio: COMMON NORMALS: regular rate, regular rhythm, S1 normal heart sound present, S2 normal heart sound present, No gallops present (Cardio), No clicks present (Cardio), No murmurs present (Cardio) and No rub (Cardio) RATE: r egular rate RHYTHM: regular rhythm HEART SOUNDS: S1 normal heart sound present and S2 normal heart sound present PERIPHERAL PULSES: radial pulses present Extremity: COMMON NORMALS: no pedal edema Neuro: COMMON NORMALS: patient oriented x3 and moves all extremities S ENSORIUM/ORIENTATION: Yes oriented to person, Yes oriented to place and Yes oriented to time Data 02/05/25 02:18 02/05/25 02:18 A&P Assessment and plan 1. Acute non-ST elevation myocardial infarction (NSTEMI): 2. Smoker: 3. Hypertriglyceridemia: 4. History of diabetes mellitus, type II: Plan: Awaiting transfer to [facility] today. She still has some chest pain, will provide Imdur 30mg, reduce metoprolol tartrate to 25mg to allow room in her blood pressure for nitrate. Otherwise stable from cardiac perspective. Heparin infusion continued. PDMP PDMP Reviewed: Not Reviewed Attestations 2 Medical Necessity Statement*: pending transfer today Coding Level of Care Code Acute Code for [facility] Diagnoses Acute non-ST elevation myocardial infarction (NSTEMI) I21.4 Smoker F17.200 Hypertriglyceridemia E78.1 History of diabetes mellitus, type II Z86.39
--- NOTE | 2025-02-05 11:44 | PC.SOCIAL ---
Pt is self Pay Sd with [facility] is on the floor seeing pt. She said she has submitted a [facility] application for pt & has provided pt nonprofit financial controller applications.
--- NOTE | 2025-02-05 11:48 | PC.NURSE ---
Report called to [facility], to Lexy Egan RN at [phone]. Patient will be in room [address] Andry Arreola.
--- NOTE | 2025-02-05 12:03 | PC.NURSE ---
nursing got report that patients heparin drip is currently running at 9ml/hr in report but upon entering the room the heparin drip is at 12ml/hr.
[2025-02-05] MEDS: heparin drip 25,000 UNIT/500 ML PREMIX 12 UNIT IV (12:08)
[2025-02-05 12:20] LABS: Partial Thromboplastin Time 64.2 SECONDS (23.9-36.7)
--- NOTE | 2025-02-05 12:25 | PC.NURSE ---
Addendum entered by Mary Beth Espinosa RN 02/05/25 12:51: EMS is called in route to tell them that her PTT is 64.2 and to leave the heparin drip at 12ml/hr. Original Note: EMS took patient for transfer to [facility] in [place], heparin drip is running at 12ml/hr and PTT is pending. Nursing will call if [place] if heparin drip needs to be changed.
--- NOTE | 2025-02-05 14:52 | P.TS_ITS ---
Transfer Summary Providers Date of Admission: 02/02/25 22:30 Date of Discharge/Transfer: 02/05/25 Attending Provider at Admission: Odilia Morton MD Attending Provider at Transfer: Christen Serrano MD Primary Care Provider: Leroy Chamorro NP Transfer Plans: Anticipated date of transfer: 02/05/25 . Receiving Facility: [facility] . Receiving Provider: Dr. Arreola . Diagnoses at Discharge Discharge Diagnosis 1. Acute non-ST elevation myocardial infarction (NSTEMI): 2. Smoker: 3. Hypertriglyceridemia: 4. History of diabetes mellitus, type II: Reason for Visit Reason for Visit Chest Pain Hospital Course Hospital Course Please see dictated transfer summary from 02/04/2025 below. Patient was able to be transferred to higher center today for CABG. No acute interim events except nitroglycerin was discontinued and patient started on Imdur orally. Taken from transfer summary by Dr. De La Vega on 02/04/2025 On arrival to the emergency room chest pain protocol initiated and initial troponin was 143 with no delta second troponin was further elevated to 209 with a delta of 66.2. The third troponin is pending. By criteria this is a non- STEMI. EKG showed Sinus rhythm intervals are within normal range without ST-T wave abnormality. Patient got relief of chest pain with nitro. Cardiology consulted by the ER physician and started on heparin drip right after the first troponin . Patient also had received full aspirin, loaded Plavix at 600 on heparin drip started. Patient also received statin atorvastatin 80mg. CTA of the chest did not show any dissection or PE. Patient has been admitted to stepdown unit for chest pain rule out CAD. S/p cath the patient was found to have severe LAD disease and recommendation for CABG was made by the shoe repair cobbler. patient kept on heparin and nitro infusion. continued on aspirin, plavix, statins, fenofibrates, and BB dose adjusted as per the HR and BP. patient did not have any insurance and further decision for CABG vs stenting was considered until today when patient decided for CABG. Bench Chemist consulted with the [facility] Dr Andry Arreola accepted the patient for CABG. Patient condition has been discussed at length with the patient/family, I have independently reviewed the chart labs imaging/diagnostics/EKG. the goals of care and code status with the patient/family/NOK/legal sales representative public utilities, and documented accordingly. The management has been done according to the current clinical condition with respect to patient goals of care and based on recommendations/guidelines. The patient/family has been informed about the current condition and further plan of care. Agreed with the plan of care and understood without any language barrier. Every effort was made to ensure accuracy of deckhand engineer. Any obvious errors or omissions should be clarified with the author of the document. Physical Exam Narrative: General: No acute distress, AO x3 HEENT: PERRLA, pupils bilaterally equal and reactive, pallors not present Chest: Normal vesicular breath sounds, no added sounds, equal good air entry bilaterally CVS: S1-S2 regular, no murmurs, no tachycardia, no gallops, no rubs Abdomen: Soft, nontender, no organomegaly, bowel sounds present Neuro: No focal deficits, no facial deformity, AO x3, power 5/5 in all limbs TS Data Studies Completed and Pending Completed Studies During Hospitalization Category Date Time Status CTA chest [CT angio chest PE protcl [id number]] Stat Cat Scan 02/02/25 21:28 Completed ROUTE SUPERVISOR request for service Routine Exams 02/03/25 12:51 Completed XR chest 1V portable [id number] Stat Exams 02/02/25 20:05 Completed CV. echo complete* [id number] Stat Ultrasound 02/03/25 23:59 Completed Laboratory Last Values WBC 13.75 10^3/uL (3.29-11.43) H 02/05/25 02:18 RBC 4.32 10^6/uL (3.85-5.65) 02/05/25 02:18 Hgb 13.40 g/dL (11.27-16.99) 02/05/25 02:18 Hct 38.0 % (36-47) 02/05/25 02:18 MCV 88.0 fl (85-98) 02/05/25 02:18 MCH 31.0 pg (27-33) 02/05/25 02:18 MCHC 35.3 g/dL (30-55) 02/05/25 02:18 RDW 11.8 % (12.1-15.1) L 02/05/25 02:18 Plt Count 239 10^3/cmm (157-399) 02/05/25 02:18 MPV 10.8 fL (7.4-10.4) H 02/05/25 02:18 Neut % (Auto) 52.1 % 02/05/25 02:18 Lymph % (Auto) 38.9 % 02/05/25 02:18 [place] % (Auto) 5.7 % 02/05/25 02:18 Eos % (Auto) 2.0 % 02/05/25 02:18 Baso % (Auto) 0.4 % 02/05/25 02:18 Neut # (Auto) 7.17 10^3/uL (1.8-7.7) 02/05/25 02:18 Lymph # (Auto) 5.4 10^3/uL (0.8-4.8) H 02/05/25 02:18 [place] # (Auto) 0.8 10^3/uL (0.2-0.9) 02/05/25 02:18 Eos # (Auto) 0.3 10^3/uL (0.0-0.8) 02/05/25 02:18 Baso # (Auto) 0.1 10^3/uL (0.0-0.1) 02/05/25 02:18 Nucleated RBC % (auto) 0 % 02/05/25 02:18 Nucleated RBCs # 0.0 /100WBC 02/05/25 02:18 APTT 64.2 SECONDS (23.9-36.7) H D 02/05/25 11:57 Sodium 138 mmol/L (136-145) 02/05/25 02:18 Potassium 3.3 mmol/L (3.5-5.1) L 02/05/25 02:18 Chloride 100 mmol/L (98-107) 02/05/25 02:18 Carbon Dioxide 25 mmol/L (22-29) 02/05/25 02:18 Anion Gap 16.3 (5-19) 02/05/25 02:18 BUN 8 mg/dL (6-20) 02/05/25 02:18 Creatinine 0.5 mg/dL (0.5-0.9) 02/05/25 02:18 GFR Calculation 129.6 mL/min (90-130) 02/05/25 02:18 Glucose 215 mg/dL (65-115) H 02/05/25 02:18 POC Glucose 442 mg/dL (70-110) H 02/05/25 06:32 Estimat Average Glucose 292 02/03/25 06:46 Hemoglobin A1c 11.8 % (4.0-6.0) H 02/03/25 06:46 Calculated Osmolality 291 mOsm/kg (285-295) 02/05/25 02:18 Calcium 9.4 mg/dL (8.5-10.5) 02/05/25 02:18 Phosphorus 3.6 mg/dL (2.5-4.5) 02/03/25 06:46 Magnesium 1.7 mg/dL (1.7-2.3) 02/05/25 02:18 Total Bilirubin 0.3 mg/dL (0.15-1.2) 02/05/25 02:18 AST 25 U/L (0-32) 02/05/25 02:18 ALT 27 U/L (0-33) 02/05/25 02:18 Alkaline Phosphatase 116 U/L (35-105) H 02/05/25 02:18 Troponin T Baseline 143 ng/L (0-10) H* 02/02/25 20:11 Troponin T 120 Minute 209.2 ng/L (0-10) H 02/02/25 21:44 Delta Troponin T 66.2 ABS# (0-10) H* 02/02/25 21:44 Troponin T Hi Sens 6Hr 222.0 ng/L (0-10) H 02/03/25 02:11 Troponin T Hi Sens 6Hr Delta 79.0 ng/L (0-12) H* 02/03/25 02:11 NT-Pro-B Natriuret Pep 821 pg/mL (0-125) H 02/02/25 20:11 Total Protein 6.7 g/dL (6.6-8.7) 02/05/25 02:18 Albumin 4.0 g/dL (3.5-5.2) 02/05/25 02:18 Globulin 2.7 g/dL (1.3-4.6) 02/05/25 02:18 Triglycerides 825 mg/dL (0-150) H 02/03/25 06:46 Cholesterol 273 mg/dL (0-200) H 02/03/25 06:46 LDL Cholesterol Direct 163 mg/dL (0-100) H 02/03/25 06:46 LDL Cholesterol, Calc Not Reportable 02/03/25 06:46 Total VLDL Cholesterol 165 mg/dL (0-30) H 02/03/25 06:46 HDL Cholesterol 29 mg/dL (60-100) L 02/03/25 06:46 Cholesterol/HDL Ratio 9.41 mg/dL (0.0-4.40) H 02/03/25 06:46 Lipase 36 U/L (13-60) 02/02/25 20:11 TSH 1.86 uIU/mL (0.27-4.20) 02/03/25 06:46 Radiology Impressions Chest X-Ray 02/02/25 20:05 IMPRESSION: No acute cardiopulmonary abnormality. Chest CTA 02/02/25 21:28 IMPRESSION: 1. No findings of acute pulmonary embolism. There is insufficient contrast in the thoracic aorta to exclude dissection, but there is no displaced calcium to provide indirect evidence of dissection. 2. Aortic valve leaflet calcifications are noted. There is mural thickening of the left ventricle. Correlate with any clinical findings of aortic stenosis. 3. Mild centrilobular emphysema. No acute airspace disease. COMMENTS: The presence of pulmonary emphysema on CT is an independent risk factor for lung cancer. In the absence of a history or active diagnosis of lung cancer, it is recommended that this patient with emphysema be evaluated for enrollment in a low dose CT lung cancer screening program. Recent Clincial Data Last Vital Signs Temp 98.0 F 02/05/25 11:29 Pulse 88 02/05/25 11:29 Resp 13 02/05/25 11:29 BP 91/54 02/05/25 11:29 Pulse Ox 98 02/05/25 11:29 O2 Del Method Room Air 02/05/25 11:29 Vital Signs Temp Pulse Resp BP BP Pulse Ox O2 Del Method 02/05/25 11:29 98.0 F 88 13 91/54 98 Room Air 02/05/25 10:41 82 103/55 02/05/25 10:00 110/64 02/05/25 09:48 17 95 02/05/25 07:19 98.2 F 84 20 H 103/63 97 Room Air 02/05/25 06:00 92 18 Room Air 02/05/25 04:59 16 98 02/05/25 04:00 97.9 F 86 19 H 112/69 Intake & Output/Weight 02/03/25 02/04/25 02/05/25 11/04/25 06:59 05:59 06:59 06:59 Intake Total 95.55 / 95.55 2418.902 / 2418.902 1600.467 / 1600.467 557.5 / 557.5 Balance 95.55 / 95.55 2418.902 / 2418.902 1600.467 / 1600.467 557.5 / 557.5 Weight 47.718 kg 47.627 kg 47.1 kg Vitals Last Vital Signs Temp 98.0 F 02/05/25 11:29 Pulse 88 02/05/25 11:29 Resp 13 02/05/25 11:29 BP 91/54 02/05/25 11:29 Pulse Ox 98 02/05/25 11:29 O2 Del Method Room Air 02/05/25 11:29 TS Medications Medications Discontinued Medications Acetaminophen (Acetaminophen 325 Mg Tablet) 650 mg PO Q6H PRN PRN Reason: MILD PAIN Last Admin: 02/04/25 20:21 Dose: 650 mg Al Hydrox/Mg Hydrox/Simethicone (Wkaw-Xvt-Zhwxkuxps-Maria Esther 30 Ml Udc) 15 ml PO Q6H PRN PRN Reason: INDIGESTION Al Hydrox/Mg Hydrox/Simethicone (Gjsv-Cqy-Bubqpxqlu-Maria Esther 30 Ml Udc) 30 ml PO Q15M PRN PRN Reason: INDIGESTION Alprazolam (Alprazolam 0.25 Mg Tablet) 0.25 mg PO TID PRN PRN Reason: ANXIETY Last Admin: 02/03/25 17:14 Dose: 0.25 mg Aspirin (Aspirin 81 Mg Chew Tablet) 324 mg PO NOW ONE Stop: 02/02/25 20:28 Last Admin: 02/02/25 20:57 Dose: 324 mg Aspirin (Aspirin 81 Mg Ec Tablet) 81 mg PO DAILY PRICILA Last Admin: 02/05/25 04:58 Dose: 81 mg Atorvastatin Calcium (Atorvastatin 40 Mg Tablet) 80 mg PO ONCE ONE Stop: 02/02/25 21:10 Last Admin: 02/02/25 22:20 Dose: 80 mg Atorvastatin Calcium (Atorvastatin 40 Mg Tablet) 40 mg PO BEDTIME PRICILA Last Admin: 02/04/25 20:21 Dose: 40 mg Atropine Sulfate (Atropine 1 Mg/Ml Sdv 1 Ml) 0.5 mg IVP PRN PRN PRN Reason: Symptomatic bradycardia Clopidogrel Bisulfate (Clopidogrel 300 Mg Tablet) 300 mg PO ONCE ONE Stop: 02/02/25 20:55 Last Admin: 02/03/25 00:03 Dose: Not Given Clopidogrel Bisulfate (Clopidogrel 300 Mg Tablet) 600 mg PO ONCE ONE Stop: 02/02/25 21:27 Last Admin: 02/02/25 22:20 Dose: 600 mg Fenofibrate (Fenofibrate 145 Mg Tablet) 145 mg PO DAILY [facility] Last Admin: 02/05/25 04:58 Dose: 145 mg Fentanyl (Fentanyl 50 Mcg/Ml Inj 2ml) Confirm Administered Dose 100 mcg .ROUTE .STK-MED ONE Stop: 02/03/25 14:12 Fentanyl (Fentanyl 50 Mcg/Ml Inj 2ml) 50 mcg IVP PRN PRN PRN Reason: Prior to sheath removal Glucagon (Glucagon 1 Mg/Ml Kit 1 Ml) 1 mg IM ONCE PRN; Protocol PRN Reason: Adult Acute Hypoglycemia Nursing Prot. Heparin Sodium (Porcine) (Heparin 5,000 Unit/Ml Inj 1 Ml) 0 unit IVP PRN PRN; Protocol PRN Reason: Heparin Weight Based Protocol -Subsequent Bolus Heparin Sodium (Porcine) (Heparin 5,000 Unit/Ml Inj 1 Ml) 0 unit IVP ONCE ONE; Protocol Stop: 02/02/25 20:55 Last Increment: 02/02/25 22:17 Dose: 2,400 unit Incremental Dosing Total Given: 2,400 unit Heparin Sodium (Porcine) (Heparin 5,000 Unit/Ml Inj 1 Ml) Confirm Administered Dose 10,000 unit .ROUTE .ST-MED ONE Stop: 02/03/25 14:13 Heparin Sodium/Sodium Chloride (Heparin Drip) 25,000 unit in 500 mls @ 0 mls/hr IV CONT PRICILA; Protocol Last Admin: 02/05/25 12:08 Dose: 12.57 unit/kg/hr, 12 mls/hr Sodium Chloride (Sodium Chloride 0.9%) 1,000 mls @ 75 mls/hr IV .[id number] [facility] Last Infusion: 02/04/25 01:40 HVAC JOURNEYMAN Dose: Infused Dextrose (D5w) 500 mls @ 0 mls/hr IV ONCE PRN; Protocol PRN Reason: Adult Acute Hypoglycemia Prot Dextrose (D10w) 125 mls @ 750 mls/hr IV PRN PRN; Protocol PRN Reason: Adult Acute Hypoglycemia Nursing Protocol Dextrose (D10w) 250 mls @ 1,000 mls/hr IV PRN PRN; Protocol PRN Reason: Adult Acute Hypoglycemia Nursing Protocol Lidocaine HCl (Xylocaine) Confirm Administered Dose 20 mls @ as directed .ROUTE .STK-MED ONE Stop: 02/03/25 14:13 Magnesium Sulfate (Magnesium Sulfate Premix) 2 gm in 50 mls @ 50 mls/hr IV ONCE ONE Stop: 02/03/25 17:55 Last Infusion: 02/03/25 18:25 Dose: Infused Nitroglycerin/Dextrose (Nitroglycerin Drip) 50 mg in 250 mls @ 0 mls/hr IV .Q0M [facility]; Protocol Last Titration: 02/05/25 00:10 Dose: 0 mcg/min, 0 mls/hr Insulin Glargine (Insulin Glargine 100 Units/1 Ml) 5 unit SUBCUT BEDTIME PRICILA Last Admin: 02/03/25 23:00 Dose: 5 unit Insulin Glargine (Insulin Glargine 100 Units/1 Ml) 7 unit SUBCUT BEDTIME [facility] Last Admin: 02/04/25 20:22 Dose: 7 unit Insulin Human Lispro (Insulin Lispro 100 Unit/1 Ml) 0 unit SUBCUT WM&BEDTIME [facility]; Protocol Last Admin: 02/05/25 08:24 Dose: 14 unit Iohexol (Iohexol 350 Mg/Ml 500 Ml Btl (Per Ml)) 0 ml IV ONCE ONE Stop: 02/02/25 21:48 Last Admin: 02/02/25 21:48 Dose: 56 ml Isosorbide Mononitrate (Isosorbide Mononitrate Er 30 Mg Tablet) 30 mg PO DAILY [facility] Last Admin: 02/05/25 10:41 Dose: 30 mg Magnesium Hydroxide (Magnesium Hydroxide 30 Ml Udc) 30 ml PO DAILY PRN PRN Reason: CONSTIPATION Metoprolol Tartrate (Metoprolol Tartrate 25 Mg Tablet) 25 mg PO BID@0900,2100 [facility] Last Admin: 02/04/25 09:46 Dose: 25 mg Metoprolol Tartrate (Metoprolol Tartrate 25 Mg Tablet) 50 mg PO BID@0900,2100 [facility] Last Admin: 02/05/25 08:24 Dose: 50 mg Metoprolol Tartrate (Metoprolol Tartrate 25 Mg Tablet) 25 mg PO BID@0900,2100 [facility] Midazolam HCl (Midazolam 1 Mg/Ml Inj 2 Ml) Confirm Administered Dose 2 mg .ROUTE .STK-MED ONE Stop: 02/03/25 14:13 Morphine Sulfate (Morphine 4 Mg/Ml Sdv 1 Ml) 2 mg IVP Q4H PRN PRN Reason: SEVERE PAIN Last Admin: 02/05/25 09:48 Dose: 2 mg Naloxone HCl (Naloxone 0.4 Mg/Ml Sdv) 0.1 mg IVP Q2M PRN PRN Reason: OPIATERV Nicotine (Nicotine 21 Mg Patch) 1 patch TRANSDERMA DAILY [facility] Nicotine (Nicotine 21 Mg Patch) 1 patch TRANSDERMA DAILY [facility] Last Admin: 02/05/25 04:59 Dose: 1 patch Nitroglycerin (Nitroglycerin 0.4 Mg Sublingual Tablet) 0.4 mg SUBLINGUAL ONCE ONE Stop: 02/02/25 20:28 Last Admin: 02/02/25 20:57 Dose: 0.4 mg Nitroglycerin (Nitroglycerin 1 Gm/Inch Oint Pkt) 0.5 inch TOPICAL Q6H [facility] Last Admin: 02/03/25 17:21 Dose: Not Given Nitroglycerin (Nitroglycerin 5 Mg/Ml Sdv 10 Ml) Confirm Administered Dose 50 mg .ROUTE .STAerob-MED ONE Stop: 02/03/25 14:12 Nitroglycerin (Nitroglycerin 0.4 Mg Sublingual Tablet) 0.4 mg SUBLINGUAL Q5M P RN PRN Reason: CHEST PAIN Ondansetron HCl (Ondansetron 2 Mg/Ml Sdv 2 Ml) 4 mg IVP Q8H PRN PRN Reason: vomiting, or N/V if npo Pantoprazole Sodium (Pantoprazole Dr 40 Mg Tablet) 40 mg PO DAILY [facility] Last Admin: 02/05/25 04:58 Dose: 40 mg Temazepam (Temazepam 15 Mg Capsule) 15 mg PO BEDTIME PRN PRN Reason: INSOMNIA Last Admin: 02/04/25 21:54 Dose: 15 mg Allergies No Known Allergies Allergy (Verified 02/02/25 20:00) Home Medications diclofenac sodium 3 % topical gel 1 applic topical BID PRN Pain 02/03/25 [History Confirmed 02/03/25] Discharge Plan Discharge Patient Disposition: Xfer Other Condition: Stable Prescriptions: No Action diclofenac sodium 3 % gel 1 applic TOPICAL BID PRN (Reason: Pain) Media Sales Executive OK for DC: Cardiology Discharge Order = DC NOW: Discharge Order (Routine); Ordered 02/05/25 Ordered By: Christen Serrano Referrals: Leroy Chamorro NP [Primary Care Provider, Nurse Practitioner] Patient Instructions: Opioid Safety, Patient Portal & Ramy Instructions Transfer Attestations Time Spent in Transfer Care: less than 30 min Status at Transfer: Cognitive status at transfer: cognitively intact ; Behavioral status at transfer: cooperative ; Functional status at transfer: independent ambulation ; Overall status at transfer: patient is progressing back to baseline Quality Metrics Clinical Quality Measures [ Acute Myocardial Infaction { Clinical Trial Participant: No; Contraindication to aspirin: None; Aspirin prescribed; Contraindication to statin: None; Statin prescribed;}] Coding Level of Care Code Acute Code for [facility] Diagnoses Acute non-ST elevation myocardial infarction (NSTEMI) I21.4 Smoker F17.200 Hypertriglyceridemia E78.1 History of diabetes mellitus, type II Z86.39
== END 2025-02-05 12:25 | disposition short-term general hospital (02) | DRG 282 ==
LOC: ER 22:18 → ER IP 02-03 04:09 → CSU 02-03 14:44
PROVIDERS: Emergency Medicine; Internal Medicine Cardiovascular Disease; Student in an Organized Health Care Education/Training Program; Admitting Provider Internal Medicine; Emergency Provider Physician Assistant; PCP Nurse Practitioner Family; Visit Provider Student in an Organized Health Care Education/Training Program
PROC: B2111ZZ Fluoroscopy of Multiple Coronary Arteries using Low Osmolar Contrast (ICD-10-PCS; principal; 2025-02-03 15:00)
DX: I21.4 Non-ST elevation (NSTEMI) myocardial infarction (principal); F17.210 Nicotine dependence, cigarettes, uncomplicated; I25.10 Atherosclerotic heart disease of native coronary artery without angina pectoris; E78.1 Pure hyperglyceridemia; E11.9 Type 2 diabetes mellitus without complications; K21.9 Gastro-esophageal reflux disease without esophagitis; E86.0 Dehydration
CPT/HCPCS: 36415; 36416; 71045; 71275; 80053; 80061; 82962; 83036; 83690; 83721; 83735; 83880; 84100; 84443; 84484; 85025; 85347; 85730; 93005; 93306; 93458; 96372; 99152; 99153; 99285; C1769; C1887; C1894; J1644; J1815; J2250; J2270; J3010; J3475; J3490; J7030; J9999; Q9967

== ENCOUNTER 2025-02-17 14:08 | Emergency (ER) | payer SELFPAY ==
[2025-02-17 14:10] VITALS: BP 110/60; PULSE 90; RESP 16; TEMP 36.9; O2SAT 100; BMI 20.5
--- NOTE | 2025-02-17 14:22 | ED_ITS ---
HPI - Wound/Laceration 2 General: Chief Complaint: Wound/Laceration Stated Complaint: post op site draining (02/09) Time Seen by Provider: 02/17/25 14:21 History of Present Illness: 54-year-old female presents emergency ro om she had bypass surgery done in [place] 9 days ago she was discharged home she has noticed little drainage from a wound on the medial upper calf on the right leg. She has what appears to be a small mass that been put in place with Dermabond. Has been draining from underneath that. Has not had any fever sweats or chills noticed swelling of her lower extremity Associated symptoms: Denies chills or fever(s) Related Data Home Medications ?Medication ?Instructions ?Recorded ?Confirmed diclofenac sodium 3 % topical gel 1 applic topical BID PRN Pain 02/03/25 02/03/25 Previous Rx's ?Medication ?Instructions ?Recorded mupirocin 2 % topical ointment 1 applic topical BID #1 5 grams 02/17/25 Allergies Allergy/AdvReac Type Severity Reaction Status Date / Time No Known Allergies Allergy Verified 02/02/25 20:00 Review of Systems 2 Const: Denies: fever(s) or chills Card: Denies: chest pain Resp: Denies: dyspnea GI: Denies: abdominal pain : Denies: dysuria, urinary frequency or urinary urgency Musc: Denies: neck pain or back pain Skin/Breast: Denies: rash PFSH ED 2 PFSH: Medical History History of diabetes mellitus, type II Surgical History History of History of cholecystectomy History of rhinoplasty Family History Denies family history of Hyperlipidemia Lung disease Hypertension Social History Smoking and tobacco/nicotine status: never used tobacco/nicotine Alcohol intake: never Substance/Drug Use: never Household members: spouse Housing: House Marital status: Physical Exam 2 Const: COMMON NORMALS: no acute distress GENERAL APPEARANCE: cooperative and comfortable ORIENTATION/CONSCIOUSNESS: Yes awake, Yes oriented to person, Yes oriented to place and Yes oriented to time HENMT: COMMON NORMALS: normocephalic, atraumatic and hearing grossly normal bilaterally HEAD & SCALP: normocephalic and atraumatic Resp: COMMON NORMALS: normal respiratory effort, No retractions, No use of accessory muscles and clear to auscultation bilaterally AUSCULTATION: clear to auscultation bilaterally Cardio: COMMON NORMALS: regular rate, regular rhythm and No murmurs present (Cardio) RATE: regular rate RHYTHM: regular rhythm GI: COMMON NORMALS: Soft to palpation and No hepatosplenomegaly present A USCULTATION: Yes normoactive bowel sounds PALPATION: Yes Soft to palpation, No Tenderness to palpation present (GI), No Guarding due to palpation present (GI) and Yes No hepatosplenomegaly present Extremity: COMMON NORMALS: normal to inspection, capillary refill normal, no clubbing, cyanosis or edema, no calf tenderness and no pedal edema OTHER: Bit of mesh secured with Dermabond was carefully removed. Underlying wound there is some mucousy eschar present little bit of maceration of the skin edges no skin breakdown. No drainage was expressed with palpation. There is no erythema or induration. Neuro: SENSORIUM/ORIENTATION: Yes oriented to person, Yes oriented to place and Yes oriented to time Skin: COMMON NORMALS: no rashes or lesions noted GENERAL SKIN EXAM: no rashes or lesions noted Course 2 Vital Signs: Vital signs: Vital Signs Temperature 98.4 F 02/17/25 14:10 Pulse Rate 90 02/17/25 14:10 Respiratory Rate 16 02/17/25 14:10 Blood Pressure 110/60 02/17/25 14:10 Pulse Oximetry 100 02/17/25 14:10 Oxygen Delivery Me thod Room Air 02/17/25 14:10 MDM - Wound/Laceration Medical Decision Making White count at 13 9 no sign of localized infection at this area she is concerned about. Will discharge home apply dressing twice daily apply topical antibiotic ointment follow-up with her cardiothoracic surgeon return if she has further problems Medical Records I reviewed the patient's medical records. Lab Data I reviewed the patient's lab results. 02/17/25 14:28 Laboratory Results WBC 13.90 10^3/uL (3.29-11.43) H 02/17/25 14:28 RBC 2.99 10^6/uL (3.85-5.65) L 02/17/25 14: Hgb 9.20 g/dL (11.27-16.99) L 02/17/25 14: Hct 28.1 % (36-47) L 02/17/25 14: MCV 94.0 fl (85-98) 02/17/25 14: MCH 30.8 pg (27-33) 02/17/25 14: MCHC 32.7 g/dL (30-55) 02/17/25 14: RDW 13.4 % (12.1-15.1) 02/17/25 14: Plt Count 404 10^3/cmm (157-399) H 02/17/25 14: MPV 9.2 fL (7.4-10.4) 02/17/25 14: Neut % (Auto) 69.3 % 02/17/25 14: Lymph % (Auto) 17.7 % 02/17/25 14: [place] % (Auto) 6.0 % 02/17/25 14: Eos % (Auto) 4.0 % 02/17/25 14: Baso % (Auto) 0.5 % 02/17/25 14: Neut # (Auto) 9.63 10^3/uL (1.8-7.7) H 02/17/25 14: Lymph # (Auto) 2.5 10^3/uL (0.8-4.8) 02/17/25 14: [place] # (Auto) 0.8 10^3/uL (0.2-0.9) 02/17/25 14: Eos # (Auto) 0.6 10^3/uL (0.0-0.8) 02/17/25 14: Baso # (Auto) 0.1 10^3/uL (0.0-0.1) 02/17/25 14: Nucleated RBC % (auto) 0 % 02/17/25 14: Nucleated RBCs # 0.0 /100WBC 02/17/25 14:28 No radiology studies performed this visit Discharge Plan Discharge Patient Disposition: Home Clinical Impression: Drainage from surgical wound Condition: Stable Prescriptions: New mupirocin 2 % ointment 1 applic topical BID Qty: 15 0RF No Action diclofenac sodium 3 % gel 1 applic TOPICAL BID PRN (Reason: Pain) Discharge Orders: Discharge ED (Routine); Ordered 02/17/25 Ordered By: Paul Vargas Discharge Diet: Usual diet Discharge Activity: Limit activity as instructed Patient Instructions: Opioid Safety, Pain Management, Patient Portal & Ramy Instructions Activity Restrictions/Additional Instructions: Thank you for choosing [facility] for your healthcare needs today. It is very important that you follow up as instructed or that you return to the Emergency Department should you have concerns or if your condition changes or worsens in any way. Emergency department visits are focused on emergent conditions, in some cases you may require further evaluation on an outpatient basis. You were seen in the emergency room with complaint of drainage from the incision from the graft site on your right lower leg. The bandage was removed there is a little dehiscence and breakdown of the skin edges with a mucousy eschar there but there is no sign of active infection at this time was not able to express any drainage. Recommend changing wound dressing twice a day apply topical antibiotic ointment sparingly to the wound and follow-up with your doctor as scheduled. Continue to follow all of your other discharge instructions (Please note that included in your discharge packet is information concerning opioid safety and pain management. This information is given to all patients were discharged from the ER regardless of their discharge diagnosis or the medicines they usually take or are prescribed.) Print Language: Romanian Coding Level of Care Code ED Groundskeeper Supervisor for Troy Elias
[2025-02-17 14:32] LABS: Hematocrit 28.1 % (36-47); Hemoglobin 9.20 g/dL (11.27-16.99); Mean Corpuscular HGB Conc 32.7 g/dL (30-55); Mean Corpuscular Hemoglobin 30.8 pg (27-33); Mean Corpuscular Volume 94.0 fl (85-98); Nucleated Red Blood Cells % 0 %; Platelet Count 404 10^3/cmm (157-399); Red Blood Count 2.99 10^6/uL (3.85-5.65); White Blood Count 13.90 10^3/uL (3.29-11.43)
== END 2025-02-17 15:08 | disposition home or self-care (01) ==
PROVIDERS: Emergency Provider Family Medicine
DX: T81.89XA Other complications of procedures, not elsewhere classified, initial encounter (principal); X58.XXXA Exposure to other specified factors, initial encounter; Z98.890 Other specified postprocedural states; E11.9 Type 2 diabetes mellitus without complications
CPT/HCPCS: 36415; 85025; 99283

== ENCOUNTER → 2025-02-27 09:12 | Outpatient (BNVA) | payer MEDICAID, SELFPAY | PROVIDERS: Visit Provider Internal Medicine Cardiovascular Disease | DX: I42.9 Cardiomyopathy, unspecified (principal); E78.5 Hyperlipidemia, unspecified; I10 Essential (primary) hypertension; Z95.1 Presence of aortocoronary bypass graft; Z87.891 Personal history of nicotine dependence | CPT/HCPCS: 99214 ==

== ENCOUNTER → 2025-03-19 13:07 | Outpatient (BNVA) | payer MEDICAID, SELFPAY | PROVIDERS: Visit Provider Nurse Practitioner Family | DX: I25.10 Atherosclerotic heart disease of native coronary artery without angina pectoris (principal); Z95.1 Presence of aortocoronary bypass graft; I10 Essential (primary) hypertension; E11.9 Type 2 diabetes mellitus without complications; Z51.89 Encounter for other specified aftercare; K59.09 Other constipation; Z87.891 Personal history of nicotine dependence | CPT/HCPCS: 99214 ==